=== PATIENT | male | born 1955 | race Caucasian/White ===

== ENCOUNTER 2018-11-14 12:10 | Emergency (ER) | payer OTHER, MEDICAID ==
[2018-11-14 12:21] VITALS: BP 117/65
--- NOTE | 2018-11-14 12:53 | ER Document Report ---
ED Medical Screen (RME) - General Mode of Arrival: Wheelchair Information source: Patient TRAVEL OUTSIDE OF THE U.S. IN LAST 30 DAYS: No <ZAYRA BENAVIDES - Last Filed: 11/14/18 12:52> <JESSICA LEHMAN - Last Filed: 11/14/18 14:50> - General Chief Complaint: Edema Stated Complaint: POSSIBLE PEDAL EDEMA Time Seen by Provider: 11/14/18 12:32 Notes: Patient is a 63-year-old male presents emergency department today with multiple complaints. Patient reports he is homeless and has bilateral lower extremity edema. He also reports he has an alcoholic and is hoping he can start detox. He states he tried detoxing last November unsuccessfully. He does have a friend at the bedside with him. Exam: Bilateral 2+ pitting edema to his lower extremities. I have greeted and performed a rapid initial assessment of this patient. A com prehensive ED assessment and evaluation of the patient, analysis of test results and completion of the medical decision making process will be conducted by additional ED providers. I have specifically instructed the patient or family members with the patient to immediately return to any nursing staff should anything change in the patient's condition or with their chief complaint. This medical record was dictated with voice recognizing software. There may be grammatical, syntax errors that are unintended. (ZAYRA BENAVIDES) - Related Data Allergies/Adverse Reactions: No Known Allergies Allergy (Verified 05/29/15 16:48) Past Medical History - Social History Chew tobacco use (# tins/day): No Frequency of alcohol use: Heavy Drug Abuse: Marijuana <ZAYRA BENAVIDES - Last Filed: 11/14/18 12:52> Physical Exam - Vital signs Vitals: Temp Pulse Resp BP Pulse Ox 97.8 F 81 18 117/65 94 11/14/18 12:20 11/14/18 12:20 11/14/18 12:20 11/14/18 12:20 11/14/18 12:20 Course - Laboratory Result Diagrams: 11/14/18 13:11/14/18 13:09 <JESSICA LEHMAN P - Last Filed: 11/14/18 14:50> - Vital Signs Vital signs: Temp Pulse Resp BP Pulse Ox 97.8 F 81 18 117/65 94 11/14/18 12:20 11/14/18 12:20 11/14/18 12:20 11/14/18 12:20 11/14/18 12:20 - Laboratory Laboratory results interpreted by me: 11/14/18 11/14/18 11/14/18 13:09 13:09 14:15 WBC 3.1 L RBC 3.86 L MCV 109 H MCH 36.7 H RDW 14.8 H Plt Count 62 L Seg Neuts % (Manual) 38 L Monocytes % (Manual) 14 H Basophils % (Manual) 3 H Abs Neuts (Manual) 1.2 L Sodium 136.9 L Glucose 180 H Total Bilirubin 4.7 H Direct Bilirubin 1.9 H AST 70 H Albumin 3.3 L Urine Urobilinogen 2.0 H
[2018-11-14 13:35] LABS: HEMOGLOBIN 14.2 g/dL (13.5-17.0); MEAN CORPUSCULAR HEMOGLOBIN 36.7 pg (27.0-33.4); MEAN CORPUSCULAR HGB CONC 33.8 g/dL (32.0-36.0); MEAN CORPUSCULAR VOLUME 109 fl (80-97); RED BLOOD COUNT 3.86 10^6/uL (4.35-5.55); RED CELL DISTRIBUTION WIDTH 14.8 % (11.5-14.0); WHITE BLOOD COUNT 3.1 10^3/uL (4.0-10.5)
[2018-11-14 13:44] LABS: ALBUMIN 3.3 g/dL (3.5-5.0); ALKALINE PHOSPHATASE 93 U/L (38-126); ANION GAP 10 (5-19); ASPARTATE AMINO TRANSFERASE 70 U/L (17-59); BILIRUBIN,DIRECT 1.9 mg/dL (0.0-0.4); BILIRUBIN,TOTAL 4.7 mg/dL (0.2-1.3); BLOOD UREA NITROGEN 7 mg/dL (7-20); CALCIUM 8.9 mg/dL (8.4-10.2); CARBON DIOXIDE 25 mmol/L (22-30); CHLORIDE 102 mmol/L (98-107); GLUCOSE 180 mg/dL (75-110); POTASSIUM 3.6 mmol/L (3.6-5.0); TOTAL PROTEIN 7.4 g/dL (6.3-8.2)
[2018-11-14 14:02] LABS: PLATELET COUNT 62 10^3/uL (150-450)
[2018-11-14 14:13] LABS: ABSOLUTE LYMPHOCYTES# (MANUAL) 1.3 10^3/uL (0.5-4.7); ABSOLUTE MONOCYTES # (MANUAL) 0.4 10^3/uL (0.1-1.4); BASOPHILS % (MANUAL) 3 % (0-2); EOSINOPHILS % (MANUAL) 3 % (0-6); LYMPHOCYTES % (MANUAL) 39 % (13-45); MONOCYTES % (MANUAL) 14 % (3-13); SEGMENTED NEUTROPHILS % (MAN) 38 % (42-78); TOTAL CELLS COUNTED 100
[2018-11-14 14:14] LABS: ANISOCYTOSIS 1+; PLATELET COMMENT DECREASED
[2018-11-14 14:34] LABS: APPEARANCE,URINE CLEAR; BILIRUBIN,URINE NEGATIVE (NEGATIVE); COLOR,URINE STRAW; GLUCOSE, URINE NEGATIVE (NEGATIVE); KETONES,URINE NEGATIVE (NEGATIVE); LEUKOCYTE ESTERASE,URINE NEGATIVE (NEGATIVE); NITRITE,URINE NEGATIVE (NEGATIVE); PROTEIN,URINE NEGATIVE (NEGATIVE); URINE SPECIFIC GRAVITY 1.006
--- NOTE | 2018-11-14 14:55 | ER Document Report ---
ED General <ROBI HUSSEIN - Last Filed: 11/14/18 15:05> - General Mode of Arrival: Wheelchair Information source: Patient TRAVEL OUTSIDE OF THE U.S. IN LAST 30 DAYS: No - HPI Onset: Last week Onset/Duration: Gradual Quality of pain: No pain Severity: Moderate Pain Level: Denies Associated symptoms: None Exacerbated by: Denies Relieved by: Denies Similar symptoms previously: Yes Recently seen / treated by doctor: Yes <JESSICA LEHMAN - Last Filed: 11/14/18 15:18> - General Chief Complaint: Edema Stated Complaint: POSSIBLE PEDAL EDEMA Time Seen by Provider: 11/14/18 12:32 Primary Care Provider: [facility] [Outside] - Follow up as needed - HPI Context: 63 year old [place] patient is an admitted alcoholic - drinks 12 pack of beer each evening and drank 6 last night - who presents from [place] with complaints of le swelling. He has a h/o edema and tells me he was just recently able to get his lasix and spironolactone. H/O hepatitis C and etohism. No SI or HI. (JESSICA LEHMAN) - Related Data Allergies/Adverse Reactions: No Known Allergies Allergy (Verified 05/29/15 16:48) Past Medical History - General Information source: Patient - Social History Smoking Status: Current Every Day Smoker Chew tobacco use (# tins/day): No Frequency of alcohol use: Heavy Drug Abuse: Marijuana Family History: Reviewed & Not Pertinent Patient has suicidal ideation: No Patient has homicidal ideation: No - Past Medical History Cardiac Medical History: Reports: Hx Hypertension Pulmonary Medical History: Reports: Hx COPD <JESSICA LEHMAN - Last Filed: 11/14/18 15:18> Review of Systems - Review of Systems Constitutional: No symptoms reported EENT: No symptoms reported Cardiovascular: No symptoms reported Respiratory: No symptoms reported Gastrointestinal: No symptoms reported Genitourinary: No symptoms reported Male Genitourinary: No symptoms reported Musculoskeletal: See HPI, Leg swelling Skin: No symptoms reported Hematologic/Lymphatic: No symptoms reported Neurological/Psychological: No symptoms reported <JESSICA LEHMAN - Last Filed: 11/14/18 15:18> Physical Exam - Vital signs Interpretation: Normal - General General appearance: Appears well, Alert - HEENT Head: Normocephalic, Atraumatic Eyes: Normal Pupils: PERRL - Respiratory Respiratory status: No respiratory distress Chest status: Nontender Breath sounds: Normal Chest palpation: Normal - Cardiovascular Rhythm: Regular Heart sounds: Normal auscultation Murmur: No - Abdominal Inspection: Normal Distension: No distension Bowel sounds: Normal Tenderness: Nontender Organomegaly: No organomegaly - Back Back: Nontender - Extremities General upper extremity: Normal inspection, Nontender, Normal color, Normal ROM, Normal temperature General lower extremity: Normal inspection, Edema, Normal color, Normal ROM, Normal temperature, Normal weight bearing. No: Jackie's sign - Neurological Neuro grossly intact: Yes Cognition: Normal Orientation: AAOx4 [place] Coma Scale Eye Opening: Spontaneous Lobo Coma Scale Verbal: Oriented Lobo Coma Scale Motor: Obeys Commands [place] Coma Scale Total: 15 Speech: Normal Sensory: Normal - Psychological Associated symptoms: Normal affect, Normal mood - Skin Skin Temperature: Warm Skin Moisture: Dry Skin Color: Normal <JESSICA LEHMAN P - Last Filed: 11/14/18 15:18> - Vital signs Vitals: Temp Pulse Resp BP Pulse Ox 97.8 F 81 18 117/65 94 11/14/18 12:20 11/14/18 12:20 11/14/18 12:20 11/14/18 12:20 11/14/18 12:20 Course - Laboratory Result Diagrams: 11/14/18 13:09 11/14/18 13:09 <ROBI HUSSEIN - Last Filed: 11/14/18 15:05> - Laboratory Result Diagrams: 11/14/18 13:09 11/14/18 13:09 <JESSICA LEHMAN - Last Filed: 11/14/18 15:18> - Re-evaluation Re-evalutation: 11/14/18 14:56 MDM 63 year old with lower extremity edema - not new - who presents via a friend from [facility] for evaluation. He has no SI or HI. [place] the gentleman put him out reportedly because he did not want Mr Clemons living with him any longer. No SI or HI. Tells me he has been here previously about 3 years ago. No fever. No chest pain and no sob. Takes lasix and spironolactone. He just had those filled yesterday. I have discussed with mental health and they will see him and show him the resources available locally. (JESSICA LEHMAN) - Vital Signs Vital signs: Temp Pulse Resp BP Pulse Ox 97.8 F 81 18 117/65 94 11/14/18 12:20 11/14/18 12:20 11/14/18 12:20 11/14/18 12:20 11/14/18 12:20 - Laboratory Laboratory results interpreted by me: 11/14/18 11/14/18 11/14/18 13:09 13:09 14:15 WBC 3.1 L RBC 3.86 L MCV 109 H MCH 36.7 H RDW 14.8 H Plt Count 62 L Seg Neuts % (Manual) 38 L Monocytes % (Manual) 14 H Basophils % (Manual) 3 H Abs Neuts (Manual) 1.2 L Sodium 136.9 L Glucose 180 H Total Bilirubin 4.7 H Direct Bilirubin 1.9 H AST 70 H Albumin 3.3 L Urine Urobilinogen 2.0 H Discharge <ROBI HUSSEIN - Last Filed: 11/14/18 15:05> <JESSICA LEHMAN - Last Filed: 11/14/18 15:18> - Discharge Clinical Impression: Alcoholism /alcohol abuse, Hepatitis, Desire for detoxification, Cannabis abuse Condition: Stable Disposition: HOME, SELF-CARE Instructions: Alcoholic Hepatitis ([facility]), Chronic Alcoholism ([facility]), Cirrhosis ([facility]), Edema, Peripheral ([facility]) Additional Instructions: You have been evaluated by both medical and behavioral health providers while in the emergency department. You have been cleared from both acute medical and psychiatric services. You gave verbal consent to link and make referral to the [facility] for voluntary alcohol detoxification. They are expecting you by 1530. You are to go directly to their facility upon discharge from the emergency department. CHRONIC ALCOHOLISM and ALCOHOL ABUSE: Your evaluation reveals evidence of chronic alcoholism, an addiction to alcohol. The tendency to alcoholism may be inherited. Chronic use of alcohol weakens muscles, causes fatty deposits in the liver, damages the stomach, makes you more prone to infections, and can cause defects in unborn children. In the long run, brain atrophy and cirrhosis of the liver result. You are also at greater risk for certain types of cancer, such as cancer of the mouth, throat, stomach, and liver. Counselling services are available to help you. In-hospital treatment programs often help. Support groups such as Alcoholics Anonymous can be very useful in beating this addiction. Your physician can make a referral for you. As alcoholics often are prone to other addictions, you should discuss your use of any other medications with the doctor. ALCOHOL WITHDRAWAL: (concerns for it you continue to abstain since you reported drinking a 12 pack of beer a day last 2 years) Your symptoms are caused by alcohol withdrawal. After a period of frequent drinking, the brain and body are changed by the alcohol. When you quit or reduce your drinking, the nervous system becomes unstable. Withdrawal symptoms can start a few hours after your last drink, but sometimes don't begin until a couple of days later. Symptoms can include shakiness, sweating, insomnia, na usea, vomiting, fearfulness, hallucinations, and seizures. In addition to the acute effects of alcohol withdrawal, we often have to deal with the medical effects of alcoholism. These problems often include dehydration, stomach irritation, intestinal bleeding, low blood sugar, liver disease, and pancreas inflammation. Treatment for alcohol withdrawal includes mild sedatives, vitamins, and fluids. You need to be with someone who can help if symptoms become severe. Many patients can withdraw at home. Admission to the hospital or a detox facility may be necessary if withdrawal symptoms are severe and uncontrollable. Abstaining from alcohol is the only effective long-term treatment. If you start drinking again, you will not be able to control yourself after the first drink. Treatment programs are available. In addition, many alcoholics benefit from Alcoholics Anonymous or other support groups available through your counselor or [employer] nurse. AL-ANON and ALA-TEEN are support groups for friends and family members of an alcoholic. Go to the emergency room if you develop persistent vomiting, severe abdominal pain, fever, shortness of breath, hallucinations, uncontrollable tremors, or seizures. FOLLOW-UP CARE: The [facility] is expecting you by 1530 for voluntary alcohol detoxification. You are to go directly to their facility upon discharge from emergency department as you should be medically monitored during alcohol cessation. If you experience worsening or a significant change in your symptoms, notify the physician immediately, utilize mobile crisis or return to the Emergency Department at any time for re-evaluation. Referrals: [facility] [Outside] - Follow up as needed
--- NOTE | 2018-11-14 17:48 | PSYCHOLOGICAL NOTE ---
Psych Note - Psych Note Date seen by psych provider: 11/14/18 Time seen by psych provider: 15:00 - Evaluation at 1500. Spoke to friend as collateral and for plan of care at 1516.. Psych Note: Presenting Problem: Alcohol use and desire for detox. He is a . Initially consulted to only provide SA resources. Patient identified he was sleeping on a bench when Juan Miller came to him asking if her remembered her which he did not. He stated he is homeless and she allowed him to stay at her home last night, where he got clean clothes/food/bed to sleep in and the condition was he'd come to the ED today for help. He admitted he drinks a 12 pack a day and smokes pot. He reported last drink was last night. He acknowledged he went to detox at a place next to [facility] (likely the [place]) 2 years ago this November but was discharged and began drinking right away. He denied Hx of DTs or seizures and noted only withdrawal symptom of shakes. Patient presented with glossy blood shot eyes. Patient was alert and oriented x5 with linear thinking, he denied SI/HI, mood was euthymic with congruent affect, he made fair eye contact, he was able to engage and carry on dialogue conversation which was within normal limits for rate/tone/prosody. Juan Miller ([phone]) was where patient stayed last night. She stated she had been called by patient's friend to help him. She noted [facility] in [place] ([place] [facility]) has bed availability but he has to complete applic ation process (called vetting) before accepted. She noted medical concerns of edema in feet, chronic cirrhosis and hip issue/needs replacement for past 3 years. Diagnosis: Alcohol Use Disorder, Severe Homelessness Chronic Medical issues Impression/Plan: Patient is cleared from acute psychiatric services. Patient was alert and oriented x5 with linear thinking, he denied SI/HI, mood was euthymic with congruent affect, he made fair eye contact, he was able to engage and carry on dialogue conversation which was within normal limits for rate/tone/prosody. Patient gave verbal consent to make linkage and send referral to [facility] for voluntary detox. They said he could come over by 1530. His ride and friend of friend Juan was not available right away but did come for transportation. Provided patient with the outpatient SA resource sheet which highlighted [facility]FS MCM, documented IFS MCM can assist with voluntary detox and listed the detox facilities. Consulted with Dr. Arnold regarding the management and care of patient. ED physician in agreement with recommendations.
--- NOTE | 2018-11-14 18:10 | EKG REPORT ---
SEVERITY:- ABNORMAL ECG - SINUS RHYTHM ANTERIOR INFARCT, AGE INDETERMINATE : Confirmed by: Mansoor Farmer MD 14-Nov-2018 18:09:40
== END 2018-11-14 15:41 | disposition home or self-care (01) ==
LOC: ER 12:10
DX: F12.10 Cannabis abuse, uncomplicated (principal); F10.10 Alcohol abuse, uncomplicated; K75.9 Inflammatory liver disease, unspecified; R60.9 Edema, unspecified; J44.9 Chronic obstructive pulmonary disease, unspecified; Z59.0 Homelessness
CPT/HCPCS: 36415; 80053; 81001; 83880; 85025; 93005; 93010; 99285

== ENCOUNTER 2018-11-14 17:46 | Emergency (ER) | payer OTHER, MEDICAID ==
--- NOTE | 2018-11-14 18:18 | ER Document Report ---
ED Medical Screen (RME) - General Chief Complaint: Feet Swelling Stated Complaint: FEET SWELLING Time Seen by Provider: 11/14/18 18:17 Mode of Arrival: Wheelchair Information source: Patient Notes: Patient was seen and discharged from here just a few hours ago, he apparently went to the [facility] where they state that he is not appropriate for treatment there as they feel that he may be going into acute alcohol withdrawal. Patient has no new complaints. I have greeted and performed a rapid initial assessment of this patient. A comprehensive ED assessment and evaluation of the patient, analysis of test results and completion of the medical decision making process will be conducted by additional ED providers. I have specifically instructed the patient or family members with the patient to immediately return to any nursing staff should anything change in the patient's condition or with their chief complaint. This medical record was dictated with voice recognizing software. There may be grammatical, syntax errors that are unintended. TRAVEL OUTSIDE OF THE U.S. IN LAST 30 DAYS: No - Related Data Allergies/Adverse Reactions: No Known Allergies Allergy (Verified 11/14/18 17:58) Past Medical History - Past Medical History Cardiac Medical History: Reports: Hx Hypertension Pulmonary Medical History: Reports: Hx COPD Physical Exam - Vital signs Vitals: Temp Pulse Resp BP Pulse Ox 98.0 F 70 18 114/82 96 11/14/18 18:12 11/14/18 18:12 11/14/18 18:12 11/14/18 18:12 11/14/18 18:12 Course - Vital Signs Vital signs: Temp Pulse Resp BP Pulse Ox 98.0 F 70 18 114/82 96 11/14/18 18:12 11/14/18 18:12 11/14/18 18:12 11/14/18 18:12 11/14/18 18:12
--- NOTE | 2018-11-14 19:48 | ER Document Report ---
ED General - General Mode of Arrival: Wheelchair TRAVEL OUTSIDE OF THE U.S. IN LAST 30 DAYS: No - General Chief Complaint: Feet Swelling Stated Complaint: FEET SWELLING Time Seen by Provider: 11/14/18 18:17 Primary Care Provider: [facility] [Outside] - Follow up as needed [facility] [Outside] - Follow up as needed [facility] - Follow up as needed - [facility] Notes: She was seen here earlier today by another emergency medicine physician was medically clear and sent to [facility] for voluntary alcohol rehabilitation. He was sent back to to not meeting criteria for including incontinence as well as inability to walk by himself he has to use a cane. I discussed this with the nursing staff at the rehabilitation center. Patient is currently not tachycardic or hypertensive and is well-appearing with no tremulous. He does have minor bilateral pitting edema which is normal for him he does have hepatitis C. He just had his Lasix and spironolactone filled earlier this week. (CALVIN GUTHRIE) - Related Data Allergies/Adverse Reactions: No Known Allergies Allergy (Verified 11/14/18 17:58) Past Medical History - General Information source: Patient - Social History Smoking Status: Current Every Day Smoker Chew tobacco use (# tins/day): No Frequency of alcohol use: Heavy Drug Abuse: Marijuana Family History: Reviewed & Not Pertinent Patient has suicidal ideation: No Patient has homicidal ideation: No - Past Medical History Cardiac Medical History: Reports: Hx Hypertension Pulmonary Medical History: Reports: Hx COPD Review of Systems - Review of Systems Constitutional: No symptoms reported EENT: No symptoms reported Cardiovascular: No symptoms reported Respiratory: No symptoms reported Gastrointestinal: No symptoms reported Genitourinary: No symptoms reported Male Genitourinary: No symptoms reported Musculoskeletal: No symptoms reported Skin: No symptoms reported Hematologic/Lymphatic: No symptoms reported Neurological/Psychological: No symptoms reported Physical Exam - Vital signs Vitals: Temp Pulse Resp BP Pulse Ox 98.0 F 70 18 114/82 96 11/14/18 18:12 11/14/18 18:12 11/14/18 18:12 11/14/18 18:12 11/14/18 18:12 Course - Re-evaluation Re-evalutation: 11/14/18 20:01 She is well-appearing with normal vitals. He is homeless. He normally drinks approximately 12 pack a day. He is requesting inpatient rehabilitation intake center will not approve him to his known urinary incontinence and having to use a cane to ambulate. Psych service is consulted for in the a.m. for placement other rehabilitation facilities. Will write for standing order for as needed Ativan as needed. 11/15/18 17:16 Patient was awaiting psych consult my end of shift (CALVIN GUTHRIE H) - Vital Signs Vital signs: Temp Pulse Resp BP Pulse Ox 98.2 F 74 16 102/58 L 97 11/15/18 12:30 11/15/18 12:30 11/15/18 12:30 11/15/18 12:30 11/15/18 12:30 Discharge - Discharge Clinical Impression: Alcohol abuse, Desire for detoxification, Alcoholism /alcohol abuse, Hepatitis, Homelessness Condition: Stable Disposition: HOME, SELF-CARE Additional Instructions: You have been evaluated by both medical and behavioral health providers while in the emergency department. You have been cleared from both acute medical and psychiatric services. Many of your needs are social (housing, transportation). You have requested (and it is felt to be appropriate) voluntary detoxification for alcohol (sent to [facility] yesterday: denied due to their facility doctor saying too medically acute, denied again today 11/15/18 for your medical acuity, [facility] does not accept Veterans Affairs Benefits or Medicaid, [facility] stated you have to get a consult from the Veterans Affairs where you are registered at under your Primary Care or Psychiatric provider). Hospital Emergency Department Social Work/Discharge Planning (SW/DC) team called and made voluntary referral to [facility] who were provided both yours and friend's number who brought you in for contact when a bed is available. You have been provided the [facility] Sheet which lists [facility] Mobile [facility], [facility], and the local homeless care home information. Hospital Emergency Department Social Work/Discharge Planning (SW/DC) team also reached out to [facility] for resources. CHRONIC ALCOHOLISM and ALCOHOL ABUSE: Your evaluation reveals evidence of chronic alcoholism, an addiction to alcohol. The tendency to alcoholism may be inherited. Chronic use of alcohol weakens muscles, causes fatty deposits in the liver, damages the stomach, makes you more prone to infections, and can cause defects in unborn children. In the long run, brain atrophy and cirrhosis of the liver result. You are also at greater risk for certain types of cancer, such as cancer of the mouth, throat, stomach, and liver. Counselling services are available to help you. In-hospital treatment programs often help. Support groups such as Alcoholics Anonymous can be very useful in beating this addiction. Your physician can make a referral for you. As alcoholics often are prone to other addictions, you should discuss your use of any other medications with the doctor. Follow-Up Care: You have been provided the [facility] Sheet for local resource information to include: [facility], [facility], local homeless care home/other housing/food pantries/[employer] information. [facility] team and Emergency Department Social Work/Discharge Planning (SW/DC) team both involved and coordinated care. Made numerous referrals and reached out to other community professionals for additional resources and supports. If your symptoms persist or worsen please contact your physician immediately, utilize mobile crisis or return to the emergency department. Referrals: [facility] [Primary Care Provider] - Follow up as needed [facility] [Outside] - Follow up as needed [facility] [Outside] - Follow up as needed
[2018-11-14] MEDS ORDERED: LORAZEPAM 1 MG TABLET PO PRN (20:19)
--- NOTE | 2018-11-15 10:22 | ER Document Report ---
Doctor's Note Notes: 11/15/18 10:20 Rounds: Chart reviewed and patient interviewed. Patient is homeless. He came in yesterday and was referred to the detox facility, but they sent him here because he has a limp and has to use a cane to walk and because of swelling of his legs. Patient's labs show a white count 3100 with 39% lymphs. Platelet count 62,000. Bilirubin 4.7. Diagnosis of hepatitis C. Vital signs are all normal. Waleska Hsu MD
--- NOTE | 2018-11-15 12:18 | PSYCHOLOGICAL NOTE ---
Psych Note - Psych Note Date seen by psych provider: 11/15/18 Time seen by psych provider: 09:34 - Cooridination with [facility] PH[facility] at 0934 and 1036. Ongoing coordination with ED KISHORE. Made other contacts for detox. Psych Note: Presenting Problem: Mandy PHAN sent patient back to the ED and said he was declined from their facility due to his medically acuity. Patient is a homeless [place] still wanting alcohol detox with chronic medical issues. Patient slept most of the day. Patient was alert and oriented x5 with linear thinking, he denied SI/HI, mood was euthymic with congruent affect, he made fair eye contact, he was able to engage and carry on dialogue conversation which was within normal limits for rate/tone/prosody. Patient's medical issues are chronic. Dr. Arnold requested contacting [facility] regarding such. Faxed new referral. They denied due to cane (unable to have cane on the floor at their facility) and incontinence. [facility] does not accept VA or Medicaid. [facility] said [facility] would [facility] and they could provide services to patient. Coordinated with ED KISHORE Denny who was informed of patient from his first ED visit yesterday. She made a [facility] referral, reached out to [facility] and contacted individuals from detox/rehab centers in [place]. She also coordinated with patient's friend of a friend Juan. Diagnosis: Alcohol Use Disorder, Severe Homelessness Chronic Medical issues Impression/Plan: Patient is cleared from acute psychiatric services. Patient was alert and oriented x5 with linear thinking, he denied SI/HI, mood was euthymic with congruent affect, he made fair eye contact, he was able to engage and carry on dialogue conversation which was within normal limits for rate/tone/prosody. Patient gave verbal consent to make linkage and send referral to [facility] for voluntary detox. They said he could come over by 1530. His ride and friend of friend Juan was not available right away but did come for transportation. Provided patient with the outpatient [facility] resource sheet which highlighted IFS MCM, documented IFS MCM can assist with voluntary detox and listed the detox facilities. Consulted with Dr. Arnold regarding the management and care of patient. ED physician in agreement with recommendations. Patient being held overnight since no safe discharge plan given his chronic medical issues and concern for alcohol withdrawal. ED SW to find out from [facility] about bed availability tomorrow morning. Patient is cleared from acute psychiatric services.
--- NOTE | 2018-11-17 10:49 | ER Document Report ---
Doctor's Note Notes: 11/17/18 10:47 I have evaluated this pt. this am and he has no c/o at this time. He feels all of his needs are being met and his physical exam is normal. He is awaiting disposition per mental health.
[2018-11-17 23:40] VITALS: BP 110/60
--- NOTE | 2018-11-18 11:00 | ER Document Report ---
Doctor's Note Notes: 11/18/18 10:59 I have evaluated this pt. this am and he has no c/o at this time. He feels all of his needs are being met and his physical exam is normal. He is awaiting disposition per mental health.
== END 2018-11-18 18:04 | disposition home or self-care (01) ==
LOC: ER 17:46
DX: F10.20 Alcohol dependence, uncomplicated (principal); M79.89 Other specified soft tissue disorders; B19.20 Unspecified viral hepatitis C without hepatic coma; Z59.0 Homelessness; F17.200 Nicotine dependence, unspecified, uncomplicated; J44.9 Chronic obstructive pulmonary disease, unspecified; I10 Essential (primary) hypertension
CPT/HCPCS: 99285

== ENCOUNTER 2018-12-12 14:17 | Emergency (ER) | payer OTHER, MEDICAID ==
--- NOTE | 2018-12-12 14:48 | RADIOLOGY REPORT (SQ) ---
EXAM DESCRIPTION: HIP LEFT AP/LATERAL COMPLETED DATE/TIME: 12/12/2018 2:39 pm REASON FOR STUDY: bed 7 fall injury +deformity short l leg dr alvarez COMPARISON: None. NUMBER OF VIEWS: Two views. TECHNIQUE: AP pelvis and additional frog-leg view of the left hip. LIMITATIONS: None. FINDINGS: MINERALIZATION: Normal. LEFT HIP: No fracture or dislocation. Marked degenerative changes with joint space loss, sclerosis, subchondral cysts, and osteophytes. Irregular contour of the femoral head. RIGHT HIP: No fracture or dislocation. No worrisome bone lesions. PUBIS AND ISCHIUM: No fracture. PELVIS: No fracture. SACRUM: No fracture or dislocation. No worrisome bone lesions. LOWER LUMBAR SPINE: No fracture or dislocation. No worrisome bone lesions. No significant disc disea se. SOFT TISSUES: No findings. OTHER: No other significant finding. IMPRESSION: MARKED DEGENERATIVE CHANGES IN THE LEFT HIP. NO RADIOGRAPHIC EVIDENCE OF ACUTE INJURY. TECHNICAL DOCUMENTATION: JOB ID: [id number] [employer]- All Rights Reserved Reading location - IP/workstation name: [email or web address]
[2018-12-12 15:14] VITALS: BP 125/65
[2018-12-12] MEDS ORDERED: KETOROLAC TROMETHAMINE INJ/PF 30 MG/1 ML SDV IV ONE (15:19)
[2018-12-12] MEDS ORDERED: OXYCODONE HCL IR 5 MG TABLET PO ONE (15:19)
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
== END 2018-12-12 15:34 | disposition home or self-care (01) ==
LOC: ER 14:17
DX: M16.12 Unilateral primary osteoarthritis, left hip (principal); G89.29 Other chronic pain; M25.552 Pain in left hip; F17.200 Nicotine dependence, unspecified, uncomplicated; I10 Essential (primary) hypertension; J44.9 Chronic obstructive pulmonary disease, unspecified
CPT/HCPCS: 99283; 96374; 73502; J1885

== ENCOUNTER 2019-02-13 18:27 | Emergency (ER) | payer OTHER, MEDICAID ==
[2019-02-13] MEDS ORDERED: TRAMADOL HCL 50 MG TABLET PO ONE (21:15)
--- NOTE | 2019-02-13 21:15 | ER Document Report ---
ED Medical Screen (RME) - General Chief Complaint: Hip Pain Stated Complaint: HIP PAIN Time Seen by Provider: 02/13/19 21:02 Primary Care Provider: KAI FLORES [Primary Care Provider] - Follow up as needed Notes: Patient is a 63-year-old male who presents to the emergency department with a chief complaint of left hip pain. Patient reports he has had chronic left hip pain for years. He states he was seen by multiple orthopedics and was told that he needs a hip replacement but that they would not do this because of his low platelets. Patient reports that he does have liver cirrhosis with a low platelet count. Patient reports they do not even do steroid injections as there is a high risk. Patient reports today he was getting off the bus and started to have an increase in his left hip pain. Patient reports he is unable to bear full weight on his left hip as it causes significant pain. Patient reports he has not taken anything for her discomfort. TRAVEL OUTSIDE OF THE U.S. IN LAST 30 DAYS: No - Related Data Allergies/Adverse Reactions: No Known Allergies Allergy (Verified 11/14/18 17:58) Home Medications: folic acid, vitamin b12 Past Medical History - Past Medical History Cardiac Medical History: Reports: Hx Hypertension Pulmonary Medical History: Reports: Hx COPD GI Medical History: Reports: Hx Cirrhosis, Hx Hepatitis - Otitis he Infectious Medical History: Reports: Hx Hepatitis - Otitis he Physical Exam - Vital signs Vitals: Temp Pulse Resp BP Pulse Ox 97.0 F 64 18 125/67 97 02/13/19 19:03 02/13/19 19:03 02/13/19 19:03 02/13/19 19:03 02/13/19 19:03 Course - Re-evaluation Re-evalutation: 02/13/19 21:15 I have greeted and performed a rapid initial assessment of this patient. A comprehensive ED assessment and evaluation of the patient, analysis of test results and completion of the medical decision making process will be conducted by additional ED providers. - Vital Signs Vital signs: Temp Pulse Resp BP Pulse Ox 97.0 F 64 18 125/67 97 02/13/19 20:59 02/13/19 20:59 02/13/19 20:59 02/13/19 20:59 02/13/19 20:59 Doctor's Discharge - Discharge Referrals: [facility] [Primary Care Provider] - Follow up as needed
--- NOTE | 2019-02-13 22:04 | RADIOLOGY REPORT (SQ) ---
EXAM DESCRIPTION: XR HIP 2 OR MORE VIEWS COMPLETED DATE/TME: 02/13/2019 21:15 CLINICAL HISTORY: 63 years, Male, left hip pain COMPARISON: Prior study from 12/11/2018 NUMBER OF VIEWS: Two TECHNIQUE: Frontal and lateral radiographs were obtained LIMITATIONS: None. FINDINGS: Severe left hip joint osteoarthrosis is evident, designated by joint space narrowing, subchondral sclerosis, and subchondral cyst formation. There is associated bony remodeling about the left femoral head, similar to the prior. In addition, the left femoral head demonstrates axial migration. No additional osseous anomalies are appreciated. IMPRESSION: Unchanged appearance of severe left hip joint osteoarthrosis. No underlying acute osseous anomaly. copyright 2010 [employer]- All Rights Reserved
[2019-02-13] MEDS ORDERED: HYDROCODONE/ACETAMINOPHEN 5-325 MG (6 TAB/ER DISP) PO PRN (22:51)
--- NOTE | 2019-02-13 22:57 | ER Document Report ---
ED General - General Chief Complaint: Hip Pain Stated Complaint: HIP PAIN Time Seen by Provider: 02/13/19 21:02 Primary Care Provider: SANDR[facility]AI [Primary Care Provider] - Follow up as needed TRAVEL OUTSIDE OF THE U.[place]. IN LAST 30 DAYS: No - HPI Notes: Patient is a 63-year-old male with a known history of advanced cirrhosis as well as chronic left degenerative hip changes who presents emergency department for evaluation. He states that his hip "gave out" earlier today causing him significant pain. He states that now bearing weight causes him pain that is too great to bear. He has not tried any medications at home. He states he has had symptoms like this in the past, and medication was helpful. He denies falling all the way to the ground, denies hitting his head or losing consciousness. No neck or back pain. He has been seen multiple times to be evaluated for possible hip replacement, but states that because of his thrombocytopenia "no one will touch him." - Related Data Allergies/Adverse Reactions: No Known Allergies Allergy (Verified 11/14/18 17:58) Home Medications: folic acid, vitamin b12, 3 other medications, of which patient is unsure Past Medical History - General Information source: Patient - Social History Smoking Status: Current Every Day Smoker Frequency of alcohol use: Former heavy drinking Family History: Reviewed & Not Pertinent Patient has suicidal ideation: No Patient has homicidal ideation: No - Past Medical History Cardiac Medical History: Reports: Hx Hypertension Pulmonary Medical History: Reports: Hx COPD GI Medical History: Reports: Hx Cirrhosis, Hx Hepatitis - Otitis he Infectious Medical History: Reports: Hx Hepatitis - Otitis he Review of Systems - Review of Systems Constitutional: No symptoms reported EENT: No symptoms reported Cardiovascular: No symptoms reported Respiratory: No symptoms reported Gastrointestinal: No symptoms reported Genitourinary: No symptoms reported Musculoskeletal: No symptoms reported Skin: No symptoms reported Neurological/Psychological: No symptoms reported Physical Exam - Vital signs Vitals: Temp Pulse Resp BP Pulse Ox 97.0 F 64 18 125/67 97 02/13/19 19:03 02/13/19 19:03 02/13/19 19:03 02/13/19 19:03 02/13/19 19:03 - Notes Notes: Vital signs reviewed, please refer to chart. Head is normocephalic, atraumatic. Pupils equal round, reactive to light. Neck is supple without meningismus. Heart is regular rate and rhythm. Lungs are clear to auscultation bilaterally. Abdomen is soft, nontender, normoactive bowel sounds throughout. Extremities without cyanosis, clubbing. No obvious deformity of the left lower extremity. Patient is tender over the left greater trochanter. He has pain with passive and active range of motion at the hip, including internal and external rotation, but is able to do so. Neurovascularly intact distally. No posterior calf tenderness. No bony tenderness to the remainder of the femur, tibia, fibula. Course - Re-evaluation Re-evalutation: 02/13/19 22:54 Patient presents to the emergency department for evaluation. He is a former alcoholic with known cirrhosis and marked thrombocytopenia. He is therefore not a candidate for joint replacement according to multiple orthopedists. He had x- ray and Ultram was ordered through triage. X-ray shows severe degenerative changes but no clear fracture. Patient states again that this feels similar to how he is felt in the past. He is given crutches. I will send him home with a small amount of Vicodin and close follow-up. He is to return to the emergency department worsening or new concerning symptoms of any sort. - Vital Signs Vital signs: Temp Pulse Resp BP Pulse Ox 97.0 F 64 18 125/67 97 02/13/19 20:59 02/13/19 20:59 02/13/19 20:59 02/13/19 20:59 02/13/19 20:59 Discharge - Discharge Clinical Impression: Chronic left hip pain Condition: Stable Disposition: HOME, SELF-CARE Instructions: Arthritis ([facility]), Use of Crutches ([facility]) Additional Instructions: Take [place] as needed for severe pain. Please watch for dizziness, drowsiness, constipation with this medication. Follow-up with our on-call orthopedist, listed below. Return to the ED with worsening or new concerning symptoms of any sort. [facility]errals: [facility] [Primary Care [facility]] - Follow up as needed
[2019-02-13 22:58] VITALS: BP 122/64
== END 2019-02-13 23:11 | disposition home or self-care (01) ==
LOC: ER 18:27
DX: M16.12 Unilateral primary osteoarthritis, left hip (principal); M25.552 Pain in left hip; G89.29 Other chronic pain; K74.60 Unspecified cirrhosis of liver; D69.6 Thrombocytopenia, unspecified; F17.200 Nicotine dependence, unspecified, uncomplicated; I10 Essential (primary) hypertension; J44.9 Chronic obstructive pulmonary disease, unspecified; Z79.899 Other long term (current) drug therapy
CPT/HCPCS: 99283

== ENCOUNTER 2019-06-28 06:05 | Inpatient (IN) | payer OTHER, MEDICAID ==
[2019-06-28] MEDS ORDERED: MORPHINE SULFATE 10 MG/ML INJ IV ONE (06:28)
--- NOTE | 2019-06-28 06:29 | ER Document Report ---
ED Extremity Problem, Lower - General Mode of Arrival: Medic Information source: Patient TRAVEL OUTSIDE OF THE U.S. IN LAST 30 DAYS: No <PAM MADSEN - Last Filed: 06/28/19 07:56> <DILLON VANG - Last Filed: 06/28/19 14:33> - General Chief Complaint: Hip Pain Stated Complaint: FALL/HIP PAIN Time Seen by Provider: 06/28/19 06:15 Notes: 63-year-old male past medical history significant for cirrhosis of the liver, HTN, COPD presents to the emergency room with left hip pain via EMS. Patient states he was trying to find a remote when he lost his balance fell and landed on his left hip and injuring his left wrist. Denies any head injury or head trauma. Denies any loss of consciousness. Denies dizziness, shortness of breath, no difficulty breathing. Patient states he was unable to ambulate secondary to the pain called 911 for assistance. Patient has had previous injuries to his hip but states he is never fractured it or had to have surgery. States he did not take anything for pain. No meds were given by EMS (PAM MADSEN) - Related Data Allergies/Adverse Reactions: No Known Allergies Allergy (Verified 06/28/19 06:41) Past Medical History - General Information source: Patient - Social History Smoking Status: Current Every Day Smoker Frequency of alcohol use: Heavy Drug Abuse: Marijuana Lives with: Alone Family History: Reviewed & Not Pertinent - Past Medical History Cardiac Medical History: Reports: Hx Hypertension Pulmonary Medical History: Reports: Hx COPD GI Medical History: Reports: Hx Cirrhosis, Hx Hepatitis - Otitis he Infectious Medical History: Reports: Hx Hepatitis - Otitis he <PAM MADSEN - Last Filed: 06/28/19 07:56> Review of Systems - Review of Systems Constitutional: No symptoms reported EENT: No symptoms reported Cardiovascular: No symptoms reported Respiratory: No symptoms reported Musculoskeletal: Joint pain Skin: No symptoms reported Neurological/Psychological: No symptoms reported -: Yes All other systems reviewed and negative <PAM MADSEN - Last Filed: 06/28/19 07:56> Physical Exam - General General appearance: Appears well, Alert In distress: Moderate - HEENT Head: Normocephalic - Respiratory Respiratory status: No respiratory distress Chest status: Nontender Breath sounds: Normal Chest palpation: Normal - Cardiovascular Rhythm: Regular Heart sounds: Normal auscultation Murmur: No - Back Back: Normal, Nontender. No: Vertebra tenderness - Extremities Wrist: Tender - Painful range of motion with flexion extension to the left wrist. Tenderness over the distal left radius. Mild swelling noted. [employer] strength equal and adequate bilaterally. Hip: Tender - Left leg is shortened and rotated externally. There is tenderness over the left lateral aspect of the knee. Unable to flex or extend leg secondary to pain., Pain with ROM, Unable to bear weight - Neurological Neuro grossly intact: Yes Cognition: Normal Orientation: AAOx4 Additional motor exam normals: Equal fisher quahog <PAM MADSEN - Last Filed: 06/28/19 07:56> - Vital signs Vitals: Temp 97.9 F 06/28/19 06:06 - Neurological Notes: Positive left pedal pulse. (PAM MADSEN) Course - Laboratory Result Diagrams: 06/28/19 07:30 06/28/19 07:30 <PAM MADSEN - Last Filed: 06/28/19 07:56> - Laboratory Result Diagrams: 06/28/19 07:30 06/28/19 07:30 - Diagnostic Test Radiology reviewed: Reports reviewed <DILLON VANG - Last Filed: 06/28/19 14:33> - Re-evaluation Re-evalutation: 06/28/19 07:31 Reviewed hip results with patient. Aware of need for admission. Labs and chest x-ray pending. 06/28/19 07:54 Reviewed x-ray results with patient. Report noted a questionable foreign body to the distal radius metaphysis. Area was palpated there is no entry wound. No palpable foreign body noted. Patient denies any previous injury or foreign body. 06/28/19 07:56 (PAM MADSEN) 06/28/19 09:48 Called and spoke with Dr. Alonzo who recommends keeping patient n.p.o. stating that he would likely take patient to the OR later this afternoon. 06/28/19 09:55 Consulted with ZACH warren who agrees to accept patient to surgical floor as an admission under Dr. Arthur services. 06/28/19 09:56 Patient is agreeable with this plan of care. Patient encouraged to remain NPO. (DILLON VANG) - Vital Signs Vital signs: Temp Pulse Resp BP Pulse Ox 97.9 F 76 18 110/77 97 06/28/19 13:26 06/28/19 13:26 06/28/19 13:26 06/28/19 13:26 06/28/19 13:26 - Laboratory Laboratory results interpreted by me: 06/28/19 06/28/19 06/28/19 07:30 07:30 07:30 RBC 3.82 L MCV 106 H MCH 36.9 H RDW 14.7 H Plt Count 95 L Lymph % (Auto) 8.3 L Seg Neutrophils % 79.8 H PT 16.6 H Sodium 136.7 L Carbon Dioxide 19 L Glucose 127 H Total Bilirubin 2.3 H Direct Bilirubin 0.9 H AST 100 H ALT 60 H Albumin 3.1 L Amylase 06/28/19 07:30 RBC MCV MCH RDW Plt Count Lymph % (Auto) Seg Neutrophils % PT Sodium Carbon Dioxide Glucose Total Bilirubin Direct Bilirubin AST ALT Albumin Amylase 116 H - EKG Interpretation by Me Additional EKG results interpreted by me: 06/28/19 07:56 EKG reviewed and interpreted by ED MD Dr. Read. 06/28/19 07:58 NO ACUTE Stemi (PAM MADSEN) Discharge <PAM MADSEN - Last Filed: 06/28/19 07:56> - Discharge Admitting Provider: Jerson (Hospitalist) Unit Admitted: Surgical Floor <DILLON VANG - Last Filed: 06/28/19 14:33> - Discharge Clinical Impression: Displaced intertrochanteric fracture of left femur, initial encounter for closed fracture Condition: Stable Disposition: ADMITTED INPATIENT
--- NOTE | 2019-06-28 07:36 | RADIOLOGY REPORT (SQ) ---
EXAM: X-ray hip two or more views CLINICAL DATA: 63-year-old male with left hip pain TECHNICAL DATA: Two x-ray views of the left hip were performed on 06/28/2019 at 7:21 AM. COMPARISONS: 02/13/2019 FINDINGS: There is a minimally displaced intertrochanteric fracture of the proximal left femur. There is marked osteoarthritis of the left hip joint with marked narrowing along the superolateral aspect of the left hip joint and flattening of the left femoral head suggesting avascular necrosis. Findings are similar when compared to the prior study. The right hip joint is intact. There is minimal narrowing of the right hip joint. No additional acute fractures are identified. Bone mineralization is within normal limits. No focal soft tissue abnormalities are identified. IMPRESSION: 1. Minimally displaced intertrochanteric fracture of the proximal left femur. 2. 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 Findings are similar when compared to the prior study.
--- NOTE | 2019-06-28 07:44 | RADIOLOGY REPORT (SQ) ---
EXAM: X-ray wrist three or more views CLINICAL DATA: 63-year-old male with injury to left wrist TECHNICAL DATA: Three x-ray views of the left wrist were performed on 06/28/2019 at 7:01 AM. COMPARISONS: None FINDINGS: There is a minimally displaced fracture of the ulnar styloid process. No definite additional acute fracture is appreciated. There is widening of the scapholunate joint space which may represent age indeterminant ligamentous injury. There is narrowing of the 1st carpal metacarpal joint space with associated subchondral sclerosis and minimal hypertrophic spurring consistent with osteoarthritis. No pathologic lytic or sclerotic bone lesions are identified. Bone mineralization is normal. There is a punctate radiopaque foreign body projecting along the dorsal aspect of the distal radial metaphysis. IMPRESSION: 1. Minimally displaced fracture of the ulnar styloid process. 2. Widening of the scapholunate joint space which may represent age indeterminate ligamentous injury. 3. Osteoarthritis particularly involving the 1st carpal metacarpal joint. 4. Punctate radiopaque foreign body projecting along the dorsal aspect of the distal radial metaphysis.
[2019-06-28 07:53] LABS: INTERNATIONAL RATION (INR) 1.33; PROTHROMBIN TIME 16.6 SEC (11.4-15.4)
[2019-06-28 08:00] LABS: ABSOLUTE LYMPHOCYTES (AUTO) 0.5 10^3/uL (0.5-4.7); ABSOLUTE MONOCYTES (AUTO) 0.7 10^3/uL (0.1-1.4); ABSOLUTE NEUT (AUTO) 4.8 10^3/uL (1.7-8.2); BASOPHILS % (AUTO) 0.3 % (0-2); EOSINOPHILS % (AUTO) 0.1 % (0-6); HEMATOCRIT 40.3 % (37.9-51.0); HEMOGLOBIN 14.1 g/dL (13.5-17.0); LYMPHOCYTES % (AUTO) 8.3 % (13-45); MEAN CORPUSCULAR HEMOGLOBIN 36.9 pg (27.0-33.4); MEAN CORPUSCULAR HGB CONC 34.9 g/dL (32.0-36.0); MEAN CORPUSCULAR VOLUME 106 fl (80-97); MONOCYTES % (AUTO) 11.5 % (3-13); RED BLOOD COUNT 3.82 10^6/uL (4.35-5.55); RED CELL DISTRIBUTION WIDTH 14.7 % (11.5-14.0); SEGMENTED NEUTROPHILS % (AUTO) 79.8 % (42-78); TOTAL CELLS COUNTED % (AUTO) 100 %
[2019-06-28 08:11] LABS: ALBUMIN 3.1 g/dL (3.5-5.0); ALKALINE PHOSPHATASE 96 U/L (38-126); ANION GAP 14 (5-19); ASPARTATE AMINO TRANSFERASE 100 U/L (17-59); BILIRUBIN,DIRECT 0.9 mg/dL (0.0-0.4); BILIRUBIN,TOTAL 2.3 mg/dL (0.2-1.3); BLOOD UREA NITROGEN 10 mg/dL (7-20); CALCIUM 8.7 mg/dL (8.4-10.2); CARBON DIOXIDE 19 mmol/L (22-30); CHLORIDE 104 mmol/L (98-107); GLUCOSE 127 mg/dL (75-110); POTASSIUM 4.4 mmol/L (3.6-5.0); TOTAL PROTEIN 7.1 g/dL (6.3-8.2)
--- NOTE | 2019-06-28 08:16 | EKG REPORT ---
SEVERITY:- ABNORMAL ECG - SINUS RHYTHM PROBABLE ANTEROSEPTAL INFARCT, AGE INDETERM BORDERLINE PROLONGED QT INTERVAL : Confirmed by: Genevieve Gould MD 28-Jun-2019 08:15:51
--- NOTE | 2019-06-28 08:28 | RADIOLOGY REPORT (SQ) ---
EXAM DESCRIPTION: CHEST SINGLE VIEW IMAGES COMPLETED DATE/TIME: 06/28/2019 7:48 am REASON FOR STUDY: pre op COMPARISON: 05/29/2015 EXAM PARAMETERS: NUMBER OF VIEWS: One view. TECHNIQUE: Single frontal radiographic view of the chest acquired. RADIATION DOSE: NA LIMITATIONS: None. FINDINGS: LUNGS AND PLEURA: No opacities, masses or pneumothorax. No pleural effusion. MEDIASTINUM AND HILAR STRUCTURES: No masses. Contour normal. HEART AND VASCULAR STRUCTURES: Heart normal in size. Normal vasculature. BONES: No acute findings. HARDWARE: None in the chest. OTHER: No other significant finding. IMPRESSION: NO ACUTE RADIOGRAPHIC FINDING IN THE CHEST. TECHNICAL DOCUMENTATION: JOB ID: [id number] 2010 [employer]- All Rights Reserved Reading location - IP/workstation name: [email or web address]
[2019-06-28 08:33] LABS: PLATELET COUNT 95 10^3/uL (150-450)
[2019-06-28] MEDS ORDERED: ONDANSETRON HCL INJ/PF 4 MG/2 ML SDV IV PRN (10:11)
[2019-06-28] MEDS ORDERED: LEVALBUTEROL HCL NEB 1.25 MG/3 ML AMPUL NEB PRN (10:11)
[2019-06-28] MEDS ORDERED: TEMAZEPAM 7.5 MG CAPSULE PO PRN (10:11)
[2019-06-28] MEDS ORDERED: (PENDING PHARMACY ID) (Albuterol Sulfate 2 PUFF) IH PRN ×2 (10:23→10:53)
[2019-06-28] MEDS ORDERED: FAMOTIDINE INJ/PF 20 MG/2 ML SDV IV SCH ×2 (10:30→11:00)
--- NOTE | 2019-06-28 10:36 | PDOC H&P ---
History of Present Illness Admission Date/PCP: [facility] History of Present Illness: KATH HART is a 63 year old male who states that last night around 1230 tripped and fell. Patient states he had been drinking beer last night. Came into the emergency room this morning complaining of left hip pain and left wrist pain. Patient states he waited because he thought it might get better. Evidently patient has had several falls in the past and has had several x-rays of his left hip in the past in November 2018 he had an x-ray of the left hip in January 2019 x-ray of the left hip. These x-rays were for left hip pain and both showed degenerative changes only. This morning he came in to the emergency room and x-rays revealed a intertrochanteric fracture of the left hip and a small nondisplaced fracture of the left ulnar styloid. Patient has a splint applied to the left forearm, and is scheduled for surgery for pinning of the left hip later this afternoon. Patient's past medical history is significant for alcohol abuse. Patient states he drinks about a sixpack of beer every 3 to 4 days. Patient states he has cirrhosis of the liver secondary to his alcoholism. Patient is on Lasix folic acid and thiamine as a result of his liver disease and alcohol abuse. Patient tells me he has no history of hypertension nor any history of diabetes. Patient also tells me he is never had a stroke or heart attack. Patient tells me that he has a history of COPD but he very rarely uses his inhaler. Patient also tells me he is a daily cigarette smoker Patient states he is single and lives alone but has friends that will be able to help him rehab. Patient's next of kin is a brother who lives in [place], [place]. Past Medical History Pulmonary Medical History: Reports: Chronic Obstructive Pulmonary Disease (COPD) GI Medical History: Reports: Cirrhosis, Hepatitis - Otitis he Psychiatric Medical History: Reports: Alcohol Dependency, Tobacco Dependency Social History Lives with: Alone Smoking Status: Current Every Day Smoker Electronic Cigarette use?: No - Advance Directive Resuscitation Status: Full Code Family History Family History: Reviewed & Not Pertinent Parental Family History Reviewed: No Children Family History Reviewed: No Sibling(s) Family History Reviewed.: No Medication/Allergy Home Medications: Folic Acid 1 mg PO DAILY #30 tablet 05/29/15 Furosemide [Lasix 20 mg Tablet] 20 mg PO QAM #30 tablet 05/29/15 Thiamine HCl [Thiamine 100 mg Tablet] 100 mg PO DAILY #30 tablet 05/29/15 Albuterol Sulfate [Proair HFA Inhalation Aerosol 8.5 gm MDI] 2 puff IH Q4HP PRN 06/28/19 Allergies/Adverse Reactions: No Known Allergies Allergy (Verified 06/28/19 06:41) Review of Systems Constitutional: ABSENT: chills, fever(s), headache(s), weight gain, weight loss Cardiovascular: ABSENT: chest pain, dyspnea on exertion, edema, orthropnea, palpitations Respiratory: ABSENT: cough, hemoptysis Neurological: ABSENT: abnormal gait, abnormal speech, confusion, dizziness, focal weakness, syncope Psychiatric: ABSENT: anxiety, depression, homidical ideation, suicidal ideation Physical Exam Vital Signs: Temp Pulse Resp BP Pulse Ox 97.8 F 78 20 101/78 94 06/28/19 09:32 06/28/19 09:32 06/28/19 09:32 06/28/19 09:32 06/28/19 09:32 Intake & Output 06/27/19 06/28/19 06/29/19 06:59 06:59 06:59 Weight 80.739 kg General appearance: PRESENT: no acute distress, well-developed, well-nourished Respiratory exam: PRESENT: clear to auscultation julian. ABSENT: rales, rhonchi, wheezes Cardiovascular exam: PRESENT: RRR. ABSENT: diastolic murmur, rubs, systolic murmur Extremities exam: PRESENT: other - Deferred to orthopedics Neurological exam: PRESENT: alert, awake, oriented to person, oriented to place, oriented to time, oriented to situation, CN II-XII grossly intact. ABSENT: motor sensory deficit Psychiatric exam: PRESENT: appropriate affect, normal mood. ABSENT: homicidal ideation, suicidal ideation Results Laboratory Results: 06/28/19 07:30 06/28/19 07:30 06/28/19 06/28/19 07:30 07:30 WBC 6.0 RBC 3.82 L Hgb 14.1 Hct 40.3 MCV 106 H MCH 36.9 H MCHC 34.9 RDW 14.7 H Plt Count 95 L Seg Neutrophils % 79.8 H Sodium 136.7 L Potassium 4.4 Chloride 104 Carbon Dioxide 19 L Anion Gap 14 BUN 10 Creatinine 0.70 Est GFR ( Amer) > 60 Glucose 127 H Calcium 8.7 Total Bilirubin 2.3 H AST 100 H Alkaline Phosphatase 96 Total Protein 7.1 Albumin 3.1 L Impressions: Hip X-Ray 06/28/19 06:26 IMPRESSION: 1. Minimally displaced intertrochanteric fracture of the proximal left femur. 2. 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 Findings are similar when compared to the prior study. Wrist X-Ray 06/28/19 06:38 IMPRESSION: 1. Minimally displaced fracture of the ulnar styloid process. 2. Widening of the scapholunate joint space which may represent age indeterminate ligamentous injury. 3. Osteoarthritis particularly involving the 1st carpal metacarpal joint. 4. Punctate radiopaque foreign body projecting along the dorsal aspect of the distal radial metaphysis. Chest X-Ray 06/28/19 07:19 IMPRESSION: NO ACUTE RADIOGRAPHIC FINDING IN THE CHEST. Assessment and Plan - Diagnosis (1) Nondisplaced fracture of styloid process of left ulna Is this a current diagnosis for this admission?: Yes (2) COPD (chronic obstructive pulmonary disease) Is this a current diagnosis for this admission?: Yes (3) Tobacco abuse Is this a current diagnosis for this admission?: Yes (4) Alcohol abuse Is this a current diagnosis for this admission?: Yes (5) Cirrhosis of liver Is this a current diagnosis for this admission?: Yes (6) Displaced intertrochanteric fracture of left femur, initial encounter for closed fracture Is this a current diagnosis for this admission?: Yes - Plan Summary Summary: Patient will be admitted to the medicine service for medical management. Orthopedics will attend to the left ulnar fracture as well as the left hip fracture. Possibly surgery today. Patient will be watched closely for evidence of DTs however will not be treated prophylactically. Patient's cirrhosis will be monitored closely. Patient tells me he has never seen a waste elimination. April 2015 platelets were 50,000, October 2018 platelets were 62,000, and today platelets are 95,000 April 2015 INR was 2.55 today INR is 1.33 Liver functions have also been slowly increasing since April 2015 Chest x-ray today shows no acute cardiopulmonary disease EKG when compared to previous EKG shows no changes no acute findings. - Time Time Spent with patient: 35 or more minutes
[2019-06-28] MEDS: FAMOTIDINE INJ/PF 20 MG/2 ML SDV IV SCH ×2 (12:54→22:16)
[2019-06-28] MEDS: THIAMINE HCL 100 MG TABLET PO SCH (12:54)
[2019-06-28] MEDS: FOLIC ACID 1 MG TABLET PO SCH (12:54)
[2019-06-28] MEDS: FUROSEMIDE 20 MG TABLET PO SCH (12:55)
[2019-06-28] MEDS ORDERED: FUROSEMIDE 20 MG TABLET PO ONE (13:00)
[2019-06-28] MEDS ORDERED: THIAMINE HCL 100 MG TABLET PO ONE (13:00)
[2019-06-28] MEDS ORDERED: FOLIC ACID 1 MG TABLET PO ONE (13:00)
[2019-06-28] MEDS: NORMAL SALINE 1000 ML 1,000 ML IV PRN (13:01)
[2019-06-28] MEDS: MORPHINE SULFATE 10 MG/ML INJ IV PRN ×2 (18:29→20:43)
[2019-06-28 23:15] LABS: APPEARANCE,URINE CLEAR; BILIRUBIN,URINE NEGATIVE (NEGATIVE); COLOR,URINE YELLOW; GLUCOSE, URINE NEGATIVE (NEGATIVE); KETONES,URINE NEGATIVE (NEGATIVE); PROTEIN,URINE NEGATIVE (NEGATIVE); URINE SPECIFIC GRAVITY 1.013
[2019-06-29] MEDS: MORPHINE SULFATE 10 MG/ML INJ IV PRN ×4 (00:26→22:25)
[2019-06-29 05:07] LABS: ABSOLUTE BASOPHILS # (AUTO) 0.1 10^3/uL (0.0-0.2); ABSOLUTE EOSINOPHILS # (AUTO) 0.1 10^3/uL (0.0-0.6); ABSOLUTE LYMPHOCYTES (AUTO) 1.7 10^3/uL (0.5-4.7); ABSOLUTE MONOCYTES (AUTO) 1.3 10^3/uL (0.1-1.4); EOSINOPHILS % (AUTO) 0.8 % (0-6); HEMATOCRIT 36.2 % (37.9-51.0); HEMOGLOBIN 12.9 g/dL (13.5-17.0); LYMPHOCYTES % (AUTO) 23.6 % (13-45); MEAN CORPUSCULAR HEMOGLOBIN 36.5 pg (27.0-33.4); MEAN CORPUSCULAR HGB CONC 35.6 g/dL (32.0-36.0); MEAN CORPUSCULAR VOLUME 103 fl (80-97); MONOCYTES % (AUTO) 18.3 % (3-13); RED BLOOD COUNT 3.52 10^6/uL (4.35-5.55); RED CELL DISTRIBUTION WIDTH 14.2 % (11.5-14.0); SEGMENTED NEUTROPHILS % (AUTO) 56.3 % (42-78); TOTAL CELLS COUNTED % (AUTO) 100 %; WHITE BLOOD COUNT 7.1 10^3/uL (4.0-10.5)
[2019-06-29 05:17] LABS: PROTHROMBIN TIME 16.3 SEC (11.4-15.4)
[2019-06-29 05:18] LABS: PARTIAL THROMBOPLASTIN TIME 40.1 SEC (23.5-35.8)
[2019-06-29 05:26] LABS: ALBUMIN 2.7 g/dL (3.5-5.0); ALKALINE PHOSPHATASE 76 U/L (38-126); ASPARTATE AMINO TRANSFERASE 65 U/L (17-59); BILIRUBIN,TOTAL 3.4 mg/dL (0.2-1.3); BLOOD UREA NITROGEN 16 mg/dL (7-20); CALCIUM 8.1 mg/dL (8.4-10.2); CARBON DIOXIDE 24 mmol/L (22-30); CHLORIDE 105 mmol/L (98-107); GLUCOSE 97 mg/dL (75-110); TOTAL PROTEIN 6.3 g/dL (6.3-8.2)
[2019-06-29 05:31] LABS: PLATELET COUNT 86 10^3/uL (150-450)
[2019-06-29 05:57] LABS: ANION GAP 4 (5-19)
[2019-06-29] MEDS: NORMAL SALINE 1000 ML 1,000 ML IV PRN (07:30)
[2019-06-29] MEDS: FUROSEMIDE 20 MG TABLET PO SCH (07:37)
[2019-06-29] MEDS ORDERED: FENTANYL CITRATE INJ/PF 100 MCG/2 ML AMPUL ONE (09:15)
[2019-06-29] MEDS: FAMOTIDINE INJ/PF 20 MG/2 ML SDV IV SCH ×2 (09:16→22:26)
[2019-06-29] MEDS ORDERED: PROPOFOL INJ 200 MG/20 ML VIAL IV ONE (09:16)
[2019-06-29] MEDS ORDERED: MIDAZOLAM 2 MG/2 ML INJ ONE (09:16)
[2019-06-29] MEDS ORDERED: MORPHINE SULFATE 10 MG/ML INJ ONE (09:16)
[2019-06-29] MEDS ORDERED: LIDOCAINE 1% INJ-PF (10 MG/ML) 30 ML SDV ONE (09:54)
[2019-06-29] MEDS ORDERED: KETOROLAC TROMETHAMINE INJ/PF 30 MG/1 ML SDV ONE (09:54)
[2019-06-29] MEDS ORDERED: BUPIVACAINE HCL 0.25 % INJ/PF (2.5 MG/1 ML) 30 ML VIAL ONE (09:54)
[2019-06-29] MEDS ORDERED: BUPIVACAINE HCL 0.5 % INJ/PF 30 ML SDV ONE (10:05)
[2019-06-29] MEDS ORDERED: CEFAZOLIN INJ 1 GM VIAL ONE (10:23)
[2019-06-29] MEDS ORDERED: SUCCINYLCHOLINE CHLORIDE INJ 200 MG/10 ML VIAL ONE (10:44)
[2019-06-29] MEDS ORDERED: PROMETHAZINE HCL INJ 25 MG/1 ML VIAL IV PRN ×2 (10:59)
[2019-06-29] MEDS ORDERED: DIPHENHYDRAMINE HCL 50 MG/ML VIAL IV PRN (10:59)
[2019-06-29] MEDS ORDERED: MEPERIDINE HCL/PF INJ 25 MG/1 ML DISP.SYRIN IV PRN (10:59)
[2019-06-29] MEDS ORDERED: MORPHINE SULFATE 10 MG/ML INJ IV PRN (10:59)
[2019-06-29] MEDS ORDERED: FENTANYL CITRATE INJ/PF 100 MCG/2 ML AMPUL IV PRN ×3 (10:59)
--- NOTE | 2019-06-29 11:22 | PDOC PROGRESS REPORT ---
Subjective Progress Note for:: 06/29/19 Reason For Visit: ALCOHOL ABUSE,CIRRHOSIS OF THE LIVER,COPD,FALL, 06/29/2019 Alcohol abuse, left hip fracture, thrombocytopenia, cirrhosis of the liver Physical Exam Vital Signs: Temp Pulse Resp BP Pulse Ox 98.3 F 84 20 119/62 94 06/29/19 07:36 06/29/19 07:36 06/29/19 07:36 06/29/19 07:36 06/29/19 07:36 Intake & Output 06/28/19 06/29/19 06/30/19 06:59 06:59 06:59 Intake Total 1220 0 Output Total 500 Balance 720 0 Weight 80.739 kg 80.4 kg General appearance: PRESENT: no acute distress, other - Leaping comfortably Respiratory exam: PRESENT: clear to auscultation julian. ABSENT: rales, rhonchi, wheezes Cardiovascular exam: PRESENT: RRR. ABSENT: diastolic murmur, rubs, systolic murmur Neurological exam: PRESENT: alert, awake, oriented to person, oriented to place, oriented to time, oriented to situation, CN II-XII grossly intact, other - Rouses easily. ABSENT: motor sensory deficit Psychiatric exam: PRESENT: appropriate affect, normal mood. ABSENT: homicidal ideation, suicidal ideation Results Laboratory Results: 06/29/19 04:53 06/29/19 04:53 06/28/19 06/28/19 06/28/19 11:03 11:03 22:27 WBC RBC Hgb Hct MCV MCH MCHC RDW Plt Count Seg Neutrophils % Sodium Potassium Chloride Carbon Dioxide Anion Gap BUN Creatinine Est GFR ( Amer) Glucose Calcium Magnesium Total Bilirubin AST Alkaline Phosphatase Ammonia 32.9 Total Protein Albumin Urine Color YELLOW Urine Appearance CLEAR Urine pH 5.0 Ur Specific [place] 1.013 Urine Protein NEGATIVE Urine Glucose (UA) NEGATIVE Urine Ketones NEGATIVE Urine Blood SMALL H Urine RBC (Auto) 1 Blood Type A POSITIVE Antibody Screen NEGATIVE 06/29/19 06/29/19 06/29/19 04:53 04:53 04:53 WBC 7.1 RBC 3.52 L Hgb 12.9 L Hct 36.2 L MCV 103 H MCH 36.5 H MCHC 35.6 RDW 14.2 H Plt Count 86 L Seg Neutrophils % 56.3 Sodium 133.4 L Potassium 4.0 Chloride 105 Carbon Dioxide 24 Anion Gap 4 L BUN 16 Creatinine 0.64 Est GFR ( Amer) > 60 Glucose 97 Calcium 8.1 L Magnesium 1.8 Total Bilirubin 3.4 H AST 65 H Alkaline Phosphatase 76 Ammonia 42.7 H Total Protein 6.3 Albumin 2.7 L Urine Color Urine Appearance Urine pH Ur Specific [place] Urine Protein Urine Glucose (UA) Urine Ketones Urine Blood Urine RBC (Auto) Blood Type Antibody Screen Impressions: Hip X-Ray 06/28/19 06:26 IMPRESSION: 1. Minimally displaced intertrochanteric fracture of the proximal left femur. 2. 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 Findings are similar when compared to the prior study. Wrist X-Ray 06/28/19 06:38 IMPRESSION: 1. Minimally displaced fracture of the ulnar styloid process. 2. Widening of the scapholunate joint space which may represent age indeterminate ligamentous injury. 3. Osteoarthritis particularly involving the 1st carpal metacarpal joint. 4. Punctate radiopaque foreign body projecting along the dorsal aspect of the distal radial metaphysis. Chest X-Ray 06/28/19 07:19 IMPRESSION: NO ACUTE RADIOGRAPHIC FINDING IN THE CHEST. Assessment and Plan - Diagnosis (1) Nondisplaced fracture of styloid process of left ulna Is this a current diagnosis for this admission?: Yes (2) COPD (chronic obstructive pulmonary disease) Is this a current diagnosis for this admission?: Yes (3) Tobacco abuse Is this a current diagnosis for this admission?: Yes (4) Alcohol abuse Is this a current diagnosis for this admission?: Yes (5) Cirrhosis of liver Is this a current diagnosis for this admission?: Yes (6) Displaced intertrochanteric fracture of left femur, initial encounter for closed fracture Is this a current diagnosis for this admission?: Yes (7) Thrombocytopenia concurrent with and due to alcoholism Is this a current diagnosis for this admission?: Yes - Plan Summary Summary: Patient will be admitted to the medicine service for medical management. Orthopedics will attend to the left ulnar fracture as well as the left hip fracture. Possibly surgery today. Patient will be watched closely for evidence of DTs however will not be treated prophylactically. Patient's cirrhosis will be monitored closely. Patient tells me he has never seen a chief marketing officer. April 2015 platelets were 50,000, October 2018 platelets were 62,000, and today platelets are 95,000 April 2015 INR was 2.55 today INR is 1.33 Liver functions have also been slowly increasing since April 2015 Chest x-ray today shows no acute cardiopulmonary disease EKG when compared to previous EKG shows no changes no acute findings. 06/29/2019 Patient seen briefly this morning prior to surgery left hip fracture. Its have gone down to 86,000. I have ordered 1 unit of platelets. I feel like this will be beneficial during patient's recovery from surgery. It is not absolutely necessary for surgery to proceed, however due to his history I think it is better to be ahead than to get behind Patient's ammonia level is also slightly elevated higher than admission. Liver function slightly improved - Time Time Spent with patient: 25-34 minutes
--- NOTE | 2019-06-29 11:50 | PDOC CONSULTATION ---
Consultation Consult Date: 06/29/19 Provider Consulted: ZAIDA TARIQ JR History of Present Illness Admission Date/PCP: 06/28/19 10:31 [facility] Patient complains of: Left hip pain History of Present Illness: KATH HART is a 63 year old male who fell at home last night when his cane reportedly gave way. Patient is an alcoholic and had been drinking beer at the time. He came to the emergency room complaining of left hip and left wrist pain and inability to ambulate due to severity of pain. He has a history of left hip osteoarthritis as well with chronic left hip pain prior to this, which led to some of the delay of him presenting to the emergency department. The patient drinks beer on a daily basis, reportedly 1-2 a day but he does have a history of liver cirrhosis which may imply a heavier amount of drinking. He smokes regularly and lives at home alone. He describes left hip pain is severe and debilitating, worse with any attempted range of motion, improved with rest. Constant pain that is unable to be controlled on current pain medications. He denies associated lower extremity motor changes or sensory changes. Denies any radiating symptoms. Pain in the left wrist is described as 4 out of 10, improved with immobilization. He was placed in a splint in the emergency department. Pain is described as aching in nature. Pain medication is adequately improving his left wrist pain. He denies associated elbow pain and denies sensorimotor loss in the left upper extremity. He does report some numbness since the splint is been placed but attributes it to the tightness of the splint. Past Medical History Cardiac Medical History: Reports: Hypertension Pulmonary Medical History: Reports: Chronic Obstructive Pulmonary Disease (COPD) GI Medical History: Reports: Cirrhosis, Hepatitis - Otitis he Psychiatric Medical History: Reports: Alcohol Dependency, Tobacco Dependency Social History Lives with: Alone Smoking Status: Current Every Day Smoker Electronic Cigarette use?: No Frequency of Alcohol Use: Heavy Hx Recreational Drug Use: No Drugs: None Hx Prescription Drug Abuse: No - Advance Directive Resuscitation Status: Full Code Family History Family History: Reviewed & Not Pertinent Parental Family History Reviewed: No Children Family History Reviewed: NA Sibling(s) Family History Reviewed.: NA Medication/Allergy Home Medications: Folic Acid 1 mg PO DAILY #30 tablet 05/29/15 Furosemide [Lasix 20 mg Tablet] 20 mg PO QAM #30 tablet 03/30/16 Thiamine HCl [Thiamine 100 mg Tablet] 100 mg PO DAILY #30 tablet 05/29/15 Albuterol Sulfate [Proair HFA Inhalation Aerosol 8.5 gm MDI] 2 puff IH Q4HP PRN 06/28/19 Allergies/Adverse Reactions: No Known Allergies Allergy (Verified 06/28/19 06:41) Review of Systems All systems: as per PMH Review of Systems: Constitutional: ABSENT: anorexia, chills, night sweats Cardiovascular: ABSENT: chest pain Respiratory: ABSENT: dyspnea Gastrointestinal: ABSENT: vomiting Genitourinary: ABSENT: dysuria Integumentary: ABSENT: rash Neurological: ABSENT: confusion, memory loss, numbness Psychiatric: ABSENT: hallucinations Hematologic/Lymphatic: ABSENT: easy bleeding All negative as above aside from that reported in the HPI and the following: Left hip pain, left wrist pain. Physical Exam Vital Signs: Temp Pulse Resp BP Pulse Ox 98.3 F 84 20 119/62 94 06/29/19 07:36 06/29/19 07:36 06/29/19 07:36 06/29/19 07:36 06/29/19 07:36 Intake & Output 06/28/19 06/29/19 06/30/19 06:59 06:59 06:59 Intake Total 1220 0 Output Total 500 Balance 720 0 Weight 80.739 kg 80.4 kg Physical Exam: General appearance: PRESENT: no acute distress, cooperative, well-nourished Head exam: PRESENT: atraumatic, normocephalic Eye exam: PRESENT: EOMI Ear exam: PRESENT: normal external ear exam Mouth exam: PRESENT: neck supple Neck exam: ABSENT: tracheal deviation Respiratory exam: PRESENT: symmetrical, unlabored. ABSENT: accessory muscle use, wheezes Pulses: PRESENT: normal radial pulses, normal dorsalis pedis pulse Vascular exam: PRESENT: normal capillary refill GI/Abdominal exam: ABSENT: distended, firm Extremities exam: PRESENT: full ROM of bilateral shoulders, elbows wrists, knees, hips and ankles without pain aside from that noted below Musculoskeletal exam: PRESENT: full ROM, normal inspection of all 4 extremities aside from that noted below. Neurological exam: PRESENT: alert, awake, oriented to person, oriented to place, oriented to time Psychiatric exam: PRESENT: appropriate affect. ABSENT: agitated Focused psych exam: ABSENT: catatonic Skin exam: PRESENT: intact, jaundiced. ABSENT: dry All as above aside from that noted in the HPI and the following: Left lower extremity is grossly neurovascular intact. Skin is intact. Mild to moderate swelling of the left hip. Pain with any attempted range of motion of the left hip. Motor function intact EHL TA and gastroc. Pulses 2+ distally. Left leg shortened and externally rotated. Left upper extremity is currently in a splint. Sensation is grossly intact all fingers and all motor function is grossly intact. Skin is intact. Capillary refill is less than 2 seconds. No pain with palpation of elbow or range of motion. Results Laboratory Results: 06/29/19 04:53 06/29/19 04:53 06/28/19 06/28/19 06/28/19 11:03 11:03 22:27 WBC RBC Hgb Hct MCV MCH MCHC RDW Plt Count Seg Neutrophils % Sodium Potassium Chloride Carbon Dioxide Anion Gap BUN Creatinine Est GFR ( Amer) Glucose Calcium Magnesium Total Bilirubin AST Alkaline Phosphatase Ammonia 32.9 Total Protein Albumin Urine Color YELLOW Urine Appearance CLEAR Urine pH 5.0 Ur Specific [place] 1.013 Urine Protein NEGATIVE Urine Glucose (UA) NEGATIVE Urine Ketones NEGATIVE Urine Blood SMALL H Urine RBC (Auto) 1 Blood Type A POSITIVE Antibody Screen NEGATIVE 06/29/19 06/29/19 06/29/19 04:53 04:53 04:53 WBC 7.1 RBC 3.52 L Hgb 12.9 L Hct 36.2 L MCV 103 H MCH 36.5 H MCHC 35.6 RDW 14.2 H Plt Count 86 L Seg Neutrophils % 56.3 Sodium 133.4 L Potassium 4.0 Chloride 105 Carbon Dioxide 24 Anion Gap 4 L BUN 16 Creatinine 0.64 Est GFR ( Amer) > 60 Glucose 97 Calcium 8.1 L Magnesium 1.8 Total Bilirubin 3.4 H AST 65 H Alkaline Phosphatase 76 Ammonia 42.7 H Total Protein 6.3 Albumin 2.7 L Urine Color Urine Appearance Urine pH Ur Specific [place] Urine Protein Urine Glucose (UA) Urine Ketones Urine Blood Urine RBC (Auto) Blood Type Antibody Screen Impressions: Hip X-Ray 06/28/19 06:26 IMPRESSION: 1. Minimally displaced intertrochanteric fracture of the proximal left femur. 2. 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 Findings are similar when compared to the prior study. Wrist X-Ray 06/28/19 06:38 IMPRESSION: 1. Minimally displaced fracture of the ulnar styloid process. 2. Widening of the scapholunate joint space which may represent age indeterminate ligamentous injury. 3. Osteoarthritis particularly involving the 1st carpal metacarpal joint. 4. Punctate radiopaque foreign body projecting along the dorsal aspect of the distal radial metaphysis. Chest X-Ray 06/28/19 07:19 IMPRESSION: NO ACUTE RADIOGRAPHIC FINDING IN THE CHEST. Assessment & Plan - Diagnosis (1) Displaced intertrochanteric fracture of left femur, initial encounter for closed fracture Is this a current diagnosis for this admission?: Yes Plan: Plan will be for OR today. Keep n.p.o. Hospitalist has written for transfusion of platelets due to his current count of about 85,000. This should not delay surgery. Ancef 2 g to be given in the operating room After surgical intervention the patient can be placed on appropriate anticoagulation for DVT per medicine for 6 weeks He will be weightbearing as tolerated Antibiotics x24 hours Dressing changes as needed. Pain control per medicine, recommend avoidance of IV narcotics. (2) Nondisplaced fracture of styloid process of left ulna Is this a current diagnosis for this admission?: Yes Plan: Fracture of left ulna styloid. We will place a removable splint that the patient should wear for comfort. I will see him in the office for further evaluation and instruction including potential physical therapy.
--- NOTE | 2019-06-29 11:58 | Operative Report ---
Operative Report DATE OF SURGERY: 06/29/19 PREOPERATIVE DIAGNOSIS: Left intertrochanteric fracture. POSTOPERATIVE DIAGNOSIS: Left hip intertrochanteric fracture OPERATION: Left hip sliding hip screw. SURGEON: ZAIDA TARIQ JR ANESTHESIA: GA COMPLICATIONS: None ESTIMATED BLOOD LOSS: 200 cc PROCEDURE: DESCRIPTION OF OPERATION: The patient was brought to the operating room where spinal anesthetic was administered. Once the patient was comfortable, they was transferred over to the fracture table. A Arreguin catheter was present at the time prior to operation. IV antibiotics were administered preoperatively, 2 g of Ancef. The patient was secured onto the fracture table with a boot on the operative leg in a well leg gordon. A perineal post had been placed. The left lower extremity was secured down and longitudinal traction applied through the post. C-arm fluoroscopy was then brought in to check fracture alignment, and with adjustments we obtained near anatomic alignment on AP and lateral views. The lateral hip region was then prepped and draped out in the usual sterile fashion. An appropriate timeout was performed. A wire was utilized with fluoroscopy to localize the trajectory of the hip pen. Based off of this a line was drawn to represent the neck angle and are lateral incision was planned. The lateral incision was made followed by Bovie cautery of superficial bleeding. The lateral fascia was approached and dissected with cautery. After this blunt dissection was carried through the deep muscle to bone. The angle guide was placed onto bone and a pin was placed through this and checked with fluoroscopy. The femur was then drilled until we had the appropriate trajectory of the pin at the center of the head on 2 views. We measured this out to be 95. We then reamed to 10 less with a combination reamer and a long barrel. We tapped prior to screw insertion. The 80 screw was then inserted. Due to the estimated angle we went with a 130 plate. A 2 hole plate was selected along with appropriate sized head screw. This was inserted with the assistance of fluoroscopy followed by impaction of the plate against the bone. We then drilled and placed the 2 screws in the plate. Appropriate positioning was confirmed with AP and lateral fluoroscopy. A compression screw was applied to the head screw and then final fluoroscopy's were taken. All the wounds were then copiously irrigated.. The fascial layer was closed with 2-0 Monocryl in a running fashion. Subcutaneous tissue was closed with inverted 2-0 Monocryl, and the skin was closed with a running 3-0 Monocryl stitch. A sterile dressing was placed. The patient was then carefully transferred off the fracture table onto his hospital bed. The patient tolerated the procedure well and was brought to the recovery room in stable condition.
--- NOTE | 2019-06-29 12:27 | RADIOLOGY REPORT (SQ) ---
EXAM DESCRIPTION: NO CHG FLUORO; HIP IN OPERATING RM IMAGES COMPLETED DATE/TIME: 06/29/2019 11:55 am REASON FOR STUDY: ORIF LEFT HIP ASSISTED WITH FLUOROSCOPY IN OR COMPARISON: None. FLUOROSCOPY TIME: 0.9 minutes 3 images saved to PACS. TECHNIQUE: Intra-operative images acquired during surgical procedure to evaluate progress. NUMBER OF IMAGES: 3 LIMITATIONS: None. FINDINGS: Dynamic hip compression screw fixation of intertrochanteric femoral neck fracture. IMPRESSION: IMAGE(S) OBTAINED DURING PROCEDURE. COMMENT: Quality ID [id number]: Final reports for procedures using fluoroscopy that document radiation exp osure indices, or exposure time and number of fluorographic images (if radiation exposure indices are not available) Please consult full operative report of the attending physician for description of the procedure. TECHNICAL DOCUMENTATION: JOB ID: [id number] 2010 [employer]- All Rights Reserved Reading location - IP/workstation name: [email or web address]
--- NOTE | 2019-06-29 12:27 | RADIOLOGY REPORT (SQ) ---
EXAM DESCRIPTION: NO CHG FLUORO; HIP IN OPERATING RM IMAGES COMPLETED DATE/TIME: 06/29/2019 11:55 am REASON FOR STUDY: ORIF LEFT HIP ASSISTED WITH FLUOROSCOPY IN OR COMPARISON: None. FLUOROSCOPY TIME: 0.9 minutes 3 images saved to PACS. TECHNIQUE: Intra-operative images acquired during surgical procedure to evaluate progress. NUMBER OF IMAGES: 3 LIMITATIONS: None. FINDINGS: Dynamic hip compression screw fixation of intertrochanteric femoral neck fracture. IMPRESSION: IMAGE(S) OBTAINED DURING PROCEDURE. COMMENT: Quality ID [id number]: Final reports for procedures using fluoroscopy that document radiation exp osure indices, or exposure time and number of fluorographic images (if radiation exposure indices are not available) Please consult full operative report of the attending physician for description of the procedure. TECHNICAL DOCUMENTATION: JOB ID: [id number] 2010 [employer]- All Rights Reserved Reading location - IP/workstation name: [email or web address]
[2019-06-29] MEDS: FOLIC ACID 1 MG TABLET PO SCH (13:28)
[2019-06-29] MEDS: THIAMINE HCL 100 MG TABLET PO SCH (13:28)
--- NOTE | 2019-06-29 13:40 | RADIOLOGY REPORT (SQ) ---
EXAM DESCRIPTION: HIP LEFT AP/LATERAL IMAGES COMPLETED DATE/TIME: 06/29/2019 1:12 pm REASON FOR STUDY: Postop COMPARISON: 06/28/2019. NUMBER OF VIEWS: Two views. TECHNIQUE: AP pelvis and additional frog-leg view of the left hip. LIMITATIONS: None. FINDINGS: MINERALIZATION: Normal. LEFT HIP: Interval surgical fixation with hardware. Severe degenerative changes with joint space los s, sclerosis, osteophytes, and irregular contour of the femoral head. RIGHT HIP: No fracture or dislocation. No worrisome bone lesions. PUBIS AND ISCHIUM: No fracture. PELVIS: No fracture. SACRUM: No fracture or dislocation. No worrisome bone lesions. LOWER LUMBAR SPINE: No fracture or dislocation. No worrisome bone lesions. No significant disc disea se. SOFT TISSUES: No findings. OTHER: No other significant finding. IMPRESSION: INTERVAL SURGICAL FIXATION OF THE LEFT HIP FRACTURE. SEVERE DEGENERATIVE CHANGES IN THE LEFT HIP JOINT. TECHNICAL DOCUMENTATION: JOB ID: [id number] 2010 [employer]- All Rights Reserved Reading location - IP/workstation name: [email or web address]
[2019-06-29] MEDS: CEFAZOLIN SODIUM 2 GM in DEXTROSE 5%-WATER 100 ML IV SCH (17:57)
--- NOTE | 2019-06-29 18:16 | Progress Note ---
Provider Note Provider Note: Patient has had is 1 unit of platelets infused this afternoon following surgery. According to the nurse patient is heavily sedated even after 6 hours following anesthesia. Patient's renal functions are normal but his liver functions are affected by his alcohol consumption and cirrhotic liver. I Have decreased his analgesic tonight to just 1 mg morphine every 4 hours. I do not want to use Toradol, and patient may need something tonight IV. Anticipate to switch over to p.o. nonnarcotic analgesics in the morning. Due to patient having spinal anesthesia will hold off on any anticoagulants for 24 hours. Anticipate starting Eliquis 2.5 mg p.o. twice daily for the next 6 weeks. Due to patient having cirrhosis, increased liver functions, as well as thrombocytopenia, will be need to monitor closely.
[2019-06-29] MEDS ORDERED: CEFAZOLIN 2 GM/D5W RTU 2 GM/50 ML RTUPB IV SCH (18:30)
[2019-06-30] MEDS: CEFAZOLIN SODIUM 2 GM in DEXTROSE 5%-WATER 100 ML IV SCH (01:54)
[2019-06-30] MEDS: MORPHINE SULFATE 10 MG/ML INJ IV PRN (02:31)
[2019-06-30 05:26] LABS: HEMATOCRIT 30.2 % (37.9-51.0); MEAN CORPUSCULAR HEMOGLOBIN 36.9 pg (27.0-33.4); MEAN CORPUSCULAR HGB CONC 35.5 g/dL (32.0-36.0); MEAN CORPUSCULAR VOLUME 104 fl (80-97); RED BLOOD COUNT 2.91 10^6/uL (4.35-5.55); RED CELL DISTRIBUTION WIDTH 14.1 % (11.5-14.0); WHITE BLOOD COUNT 6.5 10^3/uL (4.0-10.5)
[2019-06-30 05:27] LABS: INTERNATIONAL RATION (INR) 1.39; PROTHROMBIN TIME 17.2 SEC (11.4-15.4)
[2019-06-30 05:37] LABS: ALBUMIN 2.3 g/dL (3.5-5.0); ALKALINE PHOSPHATASE 67 U/L (38-126); ASPARTATE AMINO TRANSFERASE 49 U/L (17-59); BILIRUBIN,DIRECT 1.4 mg/dL (0.0-0.4); BILIRUBIN,TOTAL 3.5 mg/dL (0.2-1.3); BLOOD UREA NITROGEN 14 mg/dL (7-20); CALCIUM 7.6 mg/dL (8.4-10.2); CARBON DIOXIDE 24 mmol/L (22-30); GLUCOSE 89 mg/dL (75-110); POTASSIUM 3.7 mmol/L (3.6-5.0); TOTAL PROTEIN 5.6 g/dL (6.3-8.2)
[2019-06-30 05:48] LABS: ANION GAP 5 (5-19); CHLORIDE 102 mmol/L (98-107)
[2019-06-30 05:54] LABS: HEMOGLOBIN 10.8 g/dL (13.5-17.0)
[2019-06-30 05:59] LABS: ABSOLUTE LYMPHOCYTES# (MANUAL) 1.1 10^3/uL (0.5-4.7); ABSOLUTE MONOCYTES # (MANUAL) 0.9 10^3/uL (0.1-1.4); BAND NEUTROPHILS % (MANUAL) 2 % (3-5); BASOPHILS % (MANUAL) 0 % (0-2); EOSINOPHILS % (MANUAL) 0 % (0-6); LYMPHOCYTES % (MANUAL) 17 % (13-45); MONOCYTES % (MANUAL) 14 % (3-13); SEGMENTED NEUTROPHILS % (MAN) 67 % (42-78); TOTAL CELLS COUNTED 100
[2019-06-30 06:00] LABS: ANISOCYTOSIS SLIGHT
[2019-06-30 06:03] LABS: PLATELET COMMENT DECREASED
[2019-06-30 06:07] LABS: PLATELET COUNT 94 10^3/uL (150-450)
[2019-06-30] MEDS: FUROSEMIDE 20 MG TABLET PO SCH (09:31)
[2019-06-30] MEDS: FAMOTIDINE INJ/PF 20 MG/2 ML SDV IV SCH ×2 (09:31→22:00)
[2019-06-30] MEDS: THIAMINE HCL 100 MG TABLET PO SCH (09:31)
[2019-06-30] MEDS: FOLIC ACID 1 MG TABLET PO SCH (09:31)
[2019-06-30] MEDS: APIXABAN 2.5 MG TABLET PO SCH ×2 (11:27→18:24)
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
--- NOTE | 2019-06-30 14:30 | PDOC PROGRESS REPORT ---
Subjective Progress Note for:: 06/30/19 Subjective:: The patient is feeling well today. Reports walking by himself today with a walker and having minimal pain in his left hip. Pain is much improved over preoperative. Reason For Visit: ALCOHOL ABUSE,CIRRHOSIS OF THE LIVER,COPD,FALL, Physical Exam Vital Signs: Temp Pulse Resp BP Pulse Ox 98.4 F 78 19 137/66 H 96 06/30/19 07:16 06/30/19 07:16 06/30/19 07:16 06/30/19 07:16 06/30/19 07:16 Intake & Output 06/29/19 06/30/19 07/01/19 06:59 06:59 06:59 Intake Total 1220 3070 Output Total 500 900 Balance 720 2170 Weight 80.4 kg 79.5 kg Physical Exam: General appearance: PRESENT: no acute distress, cooperative, well-nourished Head exam: PRESENT: atraumatic, normocephalic Eye exam: PRESENT: EOMI Ear exam: PRESENT: normal external ear exam Mouth exam: PRESENT: neck supple Neck exam: ABSENT: tracheal deviation Respiratory exam: PRESENT: symmetrical, unlabored. ABSENT: accessory muscle use, wheezes Pulses: PRESENT: normal radial pulses, normal dorsalis pedis pulse Vascular exam: PRESENT: normal capillary refill GI/Abdominal exam: ABSENT: distended, firm Extremities exam: PRESENT: full ROM of bilateral shoulders, elbows wrists, knees, hips and ankles without pain Musculoskeletal exam: PRESENT: full ROM, normal inspection of all 4 extremities aside from that noted below. Neurological exam: PRESENT: alert, awake, oriented to person, oriented to place, oriented to time Psychiatric exam: PRESENT: appropriate affect. ABSENT: agitated Focused psych exam: ABSENT: catatonic Skin exam: PRESENT: intact. ABSENT: dry All as above aside from that noted in the HPI and the following: Left lower extremity -Pulses 2+ distally -Compartments soft -Wound clean dry and intact no drainage, appropriate appearance for postop day 1 -Sensation grossly intact to L3-4-5 S1 -Motor grossly intact to EHL TA gastroc and quad - Able to perform quad extension and elevate heel off of bed. Results Laboratory Results: 06/30/19 04:25 06/30/19 04:25 06/28/19 06/30/19 06/30/19 11:03 04:25 04:25 WBC 6.5 RBC 2.91 L Hgb 10.8 L D Hct 30.2 L MCV 104 H MCH 36.9 H MCHC 35.5 RDW 14.1 H Plt Count 94 L Seg Neutrophils % Not Reportable Sodium 130.5 L Potassium 3.7 Chloride 102 Carbon Dioxide 24 Anion Gap 5 BUN 14 Creatinine 0.56 Est GFR ( Amer) > 60 Glucose 89 Calcium 7.6 L Total Bilirubin 3.5 H AST 49 Alkaline Phosphatase 67 Total Protein 5.6 L Albumin 2.3 L Blood Type A POSITIVE Antibody Screen NEGATIVE Impressions: Wrist X-Ray 06/28/19 06:38 IMPRESSION: 1. Minimally displaced fracture of the ulnar styloid process. 2. Widening of the scapholunate joint space which may represent age indeterminate ligamentous injury. 3. Osteoarthritis particularly involving the 1st carpal metacarpal joint. 4. Punctate radiopaque foreign body projecting along the dorsal aspect of the distal radial metaphysis. Chest X-Ray 06/28/19 07:19 IMPRESSION: NO ACUTE RADIOGRAPHIC FINDING IN THE CHEST. Fluoroscopy 06/29/19 00:00 IMPRESSION: IMAGE(S) OBTAINED DURING PROCEDURE. Hip X-Ray 06/29/19 00:00 IMPRESSION: INTERVAL SURGICAL FIXATION OF THE LEFT HIP FRACTURE. SEVERE DEGENERATIVE CHANGES IN THE LEFT HIP JOINT. Assessment & Plan - Diagnosis (1) Displaced intertrochanteric fracture of left femur, initial encounter for closed fracture Is this a current diagnosis for this admission?: Yes Plan: - 2 doses of Ancef postoperatively q 8 hours to complete 24 hours perioperatively -Weightbearing as tolerated, no precautions, encourage out of bed [facility] for ADL training - PT/OT -aspirin 325 daily for DVT prophylaxis for 6 weeks -multimodal pain management to avoid excessive narcotics, including gabapentin, tramadol, Toradol, acetaminophen. -Dressing should not be removed for 7 to 10 days until seen in the office -May shower with the dressing intact, if it starts to come off she should not get the incision wet. -I would like to follow the patient my office within the next 7 to [address] at [address] [place] [address]. in [place] office #: [phone] (2) Nondisplaced fracture of styloid process of left ulna Is this a current diagnosis for this admission?: Yes - Time Time Spent with patient: Less than 15 minutes
[2019-06-30] MEDS: TRAMADOL HCL 50 MG TABLET PO PRN (18:24)
[2019-06-30] MEDS: NORMAL SALINE 1000 ML 1,000 ML IV PRN (18:27)
[2019-07-01] MEDS: TRAMADOL HCL 50 MG TABLET PO PRN ×3 (00:01→19:26)
[2019-07-01] MEDS: FUROSEMIDE 20 MG TABLET PO SCH (09:04)
[2019-07-01] MEDS: FOLIC ACID 1 MG TABLET PO SCH (09:04)
[2019-07-01] MEDS: THIAMINE HCL 100 MG TABLET PO SCH (09:04)
[2019-07-01] MEDS: FAMOTIDINE INJ/PF 20 MG/2 ML SDV IV SCH ×2 (09:05→22:03)
[2019-07-01] MEDS: APIXABAN 2.5 MG TABLET PO SCH (09:05)
--- NOTE | 2019-07-01 12:04 | PDOC PROGRESS REPORT ---
Subjective Progress Note for:: 07/01/19 Reason For Visit: ALCOHOL ABUSE,CIRRHOSIS OF THE LIVER,COPD,FALL, 07/01/2019 Fracture left hip, fall, alcohol abuse, cirrhosis of the liver, COPD Physical Exam Vital Signs: Temp Pulse Resp BP Pulse Ox 98.3 F 73 16 106/59 L 96 07/01/19 07:34 07/01/19 07:34 07/01/19 07:34 07/01/19 07:34 07/01/19 07:34 Intake & Output 06/30/19 07/01/19 07/02/19 06:59 06:59 06:59 Intake Total 3070 705 Output Total 900 1225 Balance 2170 -520 Weight 79.5 kg 74.4 kg General appearance: PRESENT: no acute distress Respiratory exam: PRESENT: clear to auscultation julian. ABSENT: rales, rhonchi, wheezes Cardiovascular exam: PRESENT: RRR. ABSENT: diastolic murmur, rubs, systolic murmur Extremities exam: PRESENT: other - Deferred to Ortho Neurological exam: PRESENT: alert, awake, oriented to person, oriented to place, oriented to time, oriented to situation, CN II-XII grossly intact. ABSENT: motor sensory deficit Psychiatric exam: PRESENT: appropriate affect, normal mood. ABSENT: homicidal ideation, suicidal ideation Results Laboratory Results: 06/30/19 04:25 06/30/19 04:25 Impressions: Wrist X-Ray 06/28/19 06:38 IMPRESSION: 1. Minimally displaced fracture of the ulnar styloid process. 2. Widening of the scapholunate joint space which may represent age indeterminate ligamentous injury. 3. Osteoarthritis particularly involving the 1st carpal metacarpal joint. 4. Punctate radiopaque foreign body projecting along the dorsal aspect of the distal radial metaphysis. Chest X-Ray 06/28/19 07:19 IMPRESSION: NO ACUTE RADIOGRAPHIC FINDING IN THE CHEST. Fluoroscopy 06/29/19 00:00 IMPRESSION: IMAGE(S) OBTAINED DURING PROCEDURE. Hip X-Ray 06/29/19 00:00 IMPRESSION: INTERVAL SURGICAL FIXATION OF THE LEFT HIP FRACTURE. SEVERE DEGENERATIVE CHANGES IN THE LEFT HIP JOINT. Assessment and Plan - Diagnosis (1) Nondisplaced fracture of styloid process of left ulna Is this a current diagnosis for this admission?: Yes (2) COPD (chronic obstructive pulmonary disease) Is this a current diagnosis for this admission?: Yes (3) Tobacco abuse Is this a current diagnosis for this admission?: Yes (4) Alcohol abuse Is this a current diagnosis for this admission?: Yes (5) Cirrhosis of liver Is this a current diagnosis for this admission?: Yes (6) Displaced intertrochanteric fracture of left femur, initial encounter for closed fracture Is this a current diagnosis for this admission?: Yes (7) Thrombocytopenia concurrent with and due to alcoholism Is this a current diagnosis for this admission?: Yes - Plan Summary Summary: Patient will be admitted to the medicine service for medical management. Orthopedics will attend to the left ulnar fracture as well as the left hip fracture. Possibly surgery today. Patient will be watched closely for evidence of DTs however will not be treated prophylactically. Patient's cirrhosis will be monitored closely. Patient tells me he has never seen a oracle forms developer. April 2015 platelets were 50,000, October 2018 platelets were 62,000, and today platelets are 95,000 April 2015 INR was 2.55 today INR is 1.33 Liver functions have also been slowly increasing since April 2015 Chest x-ray today shows no acute cardiopulmonary disease EKG when compared to previous EKG shows no changes no acute findings. 06/29/2019 Patient seen briefly this morning prior to surgery left hip fracture. Its have gone down to 86,000. I have ordered 1 unit of platelets. I feel like this will be beneficial during patient's recovery from surgery. It is not absolutely necessary for surgery to proceed, however due to his history I think it is better to be ahead than to get behind Patient's ammonia level is also slightly elevated higher than admission. Liver function slightly improved 06/30/2019 Vital signs are stable temperature 98.9, pulse is 86, blood pressure 140/67, ox ygen saturation is 94% on room air Patient's hemoglobin is stable 10.8, platelets are at 94,000 following surgery and 1 unit of platelets Patient's INR is 1.3 and his liver functions are better I have started him on Eliquis 2.5 mg every 12 hours. I held this approximately 18 hours following spinal anesthesia I have also DC'd patient's IV pain medication and switch him to p.o. Ultram Patient is going to get up today with physical therapy. Will discharge patient when released by orthopedics 07/01/2019 Patient appears medically stable Did not recheck labs today but will do so tomorrow Vital signs are stable today Per orthopedics recommendation have DC'd Yessenia and will start patient on 325 aspirin Have spaced Ultram back to 1 every 6 hours, only to help him with his ambulation and physical therapy. Will not DC on any narcotics or prescription pain meds. Physical therapy states they recommend intermediate/ rehab at time of discharge. Patient did ambulate 33 feet today. I put an order in for discharge planning to start the process. No signs of DVT at this time - Time Time Spent with patient: 25-34 minutes
[2019-07-02] MEDS: TRAMADOL HCL 50 MG TABLET PO PRN ×3 (01:25→21:00)
[2019-07-02] MEDS: FUROSEMIDE 20 MG TABLET PO SCH (07:30)
[2019-07-02] MEDS: THIAMINE HCL 100 MG TABLET PO SCH (09:07)
[2019-07-02] MEDS: FAMOTIDINE INJ/PF 20 MG/2 ML SDV IV SCH (09:07)
[2019-07-02] MEDS: FOLIC ACID 1 MG TABLET PO SCH (09:07)
[2019-07-02] MEDS: ASPIRIN 325 MG TABLET PO SCH (09:07)
[2019-07-02 09:22] LABS: ABSOLUTE BASOPHILS # (AUTO) 0.1 10^3/uL (0.0-0.2); ABSOLUTE EOSINOPHILS # (AUTO) 0.2 10^3/uL (0.0-0.6); ABSOLUTE LYMPHOCYTES (AUTO) 1.1 10^3/uL (0.5-4.7); ABSOLUTE MONOCYTES (AUTO) 0.8 10^3/uL (0.1-1.4); ABSOLUTE NEUT (AUTO) 2.1 10^3/uL (1.7-8.2); BASOPHILS % (AUTO) 1.6 % (0-2); EOSINOPHILS % (AUTO) 4.8 % (0-6); HEMATOCRIT 29.3 % (37.9-51.0); HEMOGLOBIN 10.6 g/dL (13.5-17.0); LYMPHOCYTES % (AUTO) 24.9 % (13-45); MEAN CORPUSCULAR HEMOGLOBIN 37.3 pg (27.0-33.4); MEAN CORPUSCULAR HGB CONC 36.4 g/dL (32.0-36.0); MEAN CORPUSCULAR VOLUME 103 fl (80-97); MONOCYTES % (AUTO) 19.2 % (3-13); PLATELET COUNT 120 10^3/uL (150-450); RED BLOOD COUNT 2.85 10^6/uL (4.35-5.55); RED CELL DISTRIBUTION WIDTH 14.1 % (11.5-14.0); SEGMENTED NEUTROPHILS % (AUTO) 49.5 % (42-78); TOTAL CELLS COUNTED % (AUTO) 100 %; WHITE BLOOD COUNT 4.3 10^3/uL (4.0-10.5)
[2019-07-02 09:24] LABS: INTERNATIONAL RATION (INR) 1.32; PROTHROMBIN TIME 16.5 SEC (11.4-15.4)
[2019-07-02 09:35] LABS: BLOOD UREA NITROGEN 13 mg/dL (7-20); CALCIUM 7.7 mg/dL (8.4-10.2); CARBON DIOXIDE 26 mmol/L (22-30); GLUCOSE 108 mg/dL (75-110); POTASSIUM 3.3 mmol/L (3.6-5.0)
[2019-07-02 09:41] LABS: ANION GAP 5 (5-19); CHLORIDE 101 mmol/L (98-107)
--- NOTE | 2019-07-02 12:04 | PDOC PROGRESS REPORT ---
Subjective Progress Note for:: 07/02/19 Reason For Visit: ALCOHOL ABUSE,CIRRHOSIS OF THE LIVER,COPD,FALL, 07/02/2019 Admitted for fracture of the left hip secondary to a fall, alcohol abuse, cirrhosis of the liver, COPD Physical Exam Vital Signs: Temp Pulse Resp BP Pulse Ox 98.3 F 62 16 103/58 L 97 07/02/19 07:14 07/02/19 07:14 07/02/19 07:14 07/02/19 07:14 07/02/19 07:14 Intake & Output 07/01/19 07/02/19 07/03/19 06:59 06:59 06:59 Intake Total 705 2660 Output Total 1225 1500 Balance -520 1160 Weight 74.4 kg 76.8 kg General appearance: PRESENT: mild distress, other - Postop left hip pain Respiratory exam: PRESENT: clear to auscultation julian. ABSENT: rales, rhonchi, wheezes Cardiovascular exam: PRESENT: RRR. ABSENT: diastolic murmur, rubs, systolic murmur Extremities exam: PRESENT: other - Postop surgical site of the left hip shows no drainage no redness Neurological exam: PRESENT: alert, awake, oriented to person, oriented to place, oriented to time, oriented to situation, CN II-XII grossly intact. ABSENT: motor sensory deficit Psychiatric exam: PRESENT: appropriate affect, normal mood. ABSENT: homicidal ideation, suicidal ideation Results Laboratory Results: 07/02/19 09:08 07/02/19 09:08 07/02/19 07/02/19 09:08 09:08 WBC 4.3 RBC 2.85 L Hgb 10.6 L Hct 29.3 L MCV 103 H MCH 37.3 H MCHC 36.4 H RDW 14.1 H Plt Count 120 L Seg Neutrophils % 49.5 Sodium 131.6 L Potassium 3.3 L Chloride 101 Carbon Dioxide 26 Anion Gap 5 BUN 13 Creatinine 0.56 Est GFR ( Amer) > 60 Glucose 108 Calcium 7.7 L Impressions: Wrist X-Ray 06/28/19 06:38 IMPRESSION: 1. Minimally displaced fracture of the ulnar styloid process. 2. Widening of the scapholunate joint space which may represent age indeterminate ligamentous injury. 3. Osteoarthritis particularly involving the 1st carpal metacarpal joint. 4. Punctate radiopaque foreign body projecting along the dorsal aspect of the distal radial metaphysis. Chest X-Ray 06/28/19 07:19 IMPRESSION: NO ACUTE RADIOGRAPHIC FINDING IN THE CHEST. Fluoroscopy 06/29/19 00:00 IMPRESSION: IMAGE(S) OBTAINED DURING PROCEDURE. Hip X-Ray 06/29/19 00:00 IMPRESSION: INTERVAL SURGICAL FIXATION OF THE LEFT HIP FRACTURE. SEVERE DEGENERATIVE CHANGES IN THE LEFT HIP JOINT. Assessment and Plan - Diagnosis (1) Nondisplaced fracture of styloid process of left ulna Is this a current diagnosis for this admission?: Yes (2) COPD (chronic obstructive pulmonary disease) Is this a current diagnosis for this admission?: Yes (3) Tobacco abuse Is this a current diagnosis for this admission?: Yes (4) Alcohol abuse Is this a current diagnosis for this admission?: Yes (5) Cirrhosis of liver Is this a current diagnosis for this admission?: Yes (6) Displaced intertrochanteric fracture of left femur, initial encounter for closed fracture Is this a current diagnosis for this admission?: Yes (7) Thrombocytopenia concurrent with and due to alcoholism Is this a current diagnosis for this admission?: Yes - Plan Summary Summary: Patient will be admitted to the medicine service for medical management. Orthopedics will attend to the left ulnar fracture as well as the left hip f racture. Possibly surgery today. Patient will be watched closely for evidence of DTs however will not be treated prophylactically. Patient's cirrhosis will be monitored closely. Patient tells me he has never seen a community center worker. April 2015 platelets were 50,000, October 2018 platelets were 62,000, and today platelets are 95,000 April 2015 INR was 2.55 today INR is 1.33 Liver functions have also been slowly increasing since April 2015 Chest x-ray today shows no acute cardiopulmonary disease EKG when compared to previous EKG shows no changes no acute findings. 06/29/2019 Patient seen briefly this morning prior to surgery left hip fracture. Its have gone down to 86,000. I have ordered 1 unit of platelets. I feel like this will be beneficial during patient's recovery from surgery. It is not absolutely necessary for surgery to proceed, however due to his history I think it is better to be ahead than to get behind Patient's ammonia level is also slightly elevated higher than admission. Liver function slightly improved 06/30/2019 Vital signs are stable temperature 98.9, pulse is 86, blood pressure 140/67, oxygen saturation is 94% on room air Patient's hemoglobin is stable 10.8, platelets are at 94,000 following surgery and 1 unit of platelets Patient's INR is 1.3 and his liver functions are better I have started him on Eliquis 2.5 mg every 12 hours. I held this approximately 18 hours following spinal anesthesia I have also DC'd patient's IV pain medication and switch him to p.o. Ultram Patient is going to get up today with physical therapy. Will discharge patient when released by orthopedics 07/01/2019 Patient appears medically stable Did not recheck labs today but will do so tomorrow Vital signs are stable today Per orthopedics recommendation have DC'd Eliquis and will start patient on 325 aspirin Have spaced Ultram back to 1 every 6 hours, only to help him with his ambulation and physical therapy. Will not DC on any narcotics or prescription pain meds. Physical therapy states they recommend group home/ rehab at time of discharge. Patient did ambulate 33 feet today. I put an order in for discharge planning to start the process. No signs of DVT at this time 07/02/2019 I observed patient ambulating with walker and the assistance of physical the rapy. Patient ambulated about 75 feet. PTs recommendation was to continue skilled PT in acute setting after discharge. Discharge planning is working with the patient concerning patient's wishes as well as logistics. If patient goes home he will need group home assistance as well as physical therapy. Temperature 98.3 pulse 62 blood pressure 103/58 O2 sat 97% on room air Hemoglobin on admission 14.1 today 10.6 and appears to have stabilized Platelets on admission 95,000 yesterday 94,000, today platelets are up to 120,000 Plan to discharge patient from the hospitall tomorrow. Dressing over the left hip should not be removed until patient is seen in the office in 7 to 10 days, Approximately July 08 - Time Time Spent with patient: 25-34 minutes
[2019-07-02] MEDS: TEMAZEPAM 15 MG CAPSULE PO PRN (21:00)
[2019-07-02] MEDS: FAMOTIDINE 20 MG TABLET PO SCH (21:04)
[2019-07-03] MEDS: TRAMADOL HCL 50 MG TABLET PO PRN ×2 (05:59→21:39)
[2019-07-03] MEDS: FUROSEMIDE 20 MG TABLET PO SCH (07:42)
[2019-07-03] MEDS: FOLIC ACID 1 MG TABLET PO SCH (09:54)
[2019-07-03] MEDS: THIAMINE HCL 100 MG TABLET PO SCH (09:54)
[2019-07-03] MEDS: ASPIRIN 325 MG TABLET PO SCH (09:54)
[2019-07-03] MEDS: FAMOTIDINE 20 MG TABLET PO SCH ×2 (09:54→21:39)
[2019-07-03] MEDS ORDERED: ACETAMINOPHEN 325 MG TABLET PO PRN (12:29)
--- NOTE | 2019-07-03 12:36 | PDOC PROGRESS REPORT ---
Subjective Progress Note for:: 07/03/19 Reason For Visit: ALCOHOL ABUSE,CIRRHOSIS OF THE LIVER,COPD,FALL, 07/03/2019 Fracture of the left hip, fall, alcohol abuse, cirrhosis of the liver Physical Exam Vital Signs: Temp Pulse Resp BP Pulse Ox 98.0 F 63 16 96/51 L 94 07/03/19 11:22 07/03/19 11:22 07/03/19 11:22 07/03/19 11:22 07/03/19 11:22 Intake & Output 07/02/19 07/03/19 07/04/19 06:59 06:59 06:59 Intake Total 2660 1772 358 Output Total 1500 1150 800 Balance 1160 622 -442 Weight 76.8 kg 77.2 kg General appearance: PRESENT: mild distress - Postop pain, other Respiratory exam: PRESENT: clear to auscultation julian. ABSENT: rales, rhonchi, wheezes Cardiovascular exam: PRESENT: RRR. ABSENT: diastolic murmur, rubs, systolic murmur Extremities exam: PRESENT: other - Left hip dressing is dry clean with no sign of redness. Some soft tissue swelling around the incisional site probably secondary to postop bleeding Neurological exam: PRESENT: alert, awake, oriented to person, oriented to place, oriented to time, oriented to situation, CN II-XII grossly intact. ABSENT: motor sensory deficit Psychiatric exam: PRESENT: appropriate affect, normal mood. ABSENT: homicidal ideation, suicidal ideation Results Laboratory Results: 07/02/19 09:08 07/02/19 09:08 Impressions: Wrist X-Ray 06/28/19 06:38 IMPRESSION: 1. Minimally displaced fracture of the ulnar styloid process. 2. Widening of the scapholunate joint space which may represent age indeterminate ligamentous injury. 3. Osteoarthritis particularly involving the 1st carpal metacarpal joint. 4. Punctate radiopaque foreign body projecting along the dorsal aspect of the distal radial metaphysis. Chest X-Ray 06/28/19 07:19 IMPRESSION: NO ACUTE RADIOGRAPHIC FINDING IN THE CHEST. Fluoroscopy 06/29/19 00:00 IMPRESSION: IMAGE(S) OBTAINED DURING PROCEDURE. Hip X-Ray 06/29/19 00:00 IMPRESSION: INTERVAL SURGICAL FIXATION OF THE LEFT HIP FRACTURE. SEVERE DEGENERATIVE CHANGES IN THE LEFT HIP JOINT. Assessment and Plan - Diagnosis (1) Nondisplaced fracture of styloid process of left ulna Is this a current diagnosis for this admission?: Yes (2) COPD (chronic obstructive pulmonary disease) Is this a current diagnosis for this admission?: Yes (3) Tobacco abuse Is this a current diagnosis for this admission?: Yes (4) Alcohol abuse Is this a current diagnosis for this admission?: Yes (5) Cirrhosis of liver Is this a current diagnosis for this admission?: Yes (6) Displaced intertrochanteric fracture of left femur, initial encounter for closed fracture Is this a current diagnosis for this admission?: Yes (7) Thrombocytopenia concurrent with and due to alcoholism Is this a current diagnosis for this admission?: Yes - Plan Summary Summary: Patient will be admitted to the medicine service for medical management. Orthopedics will attend to the left ulnar fracture as well as the left hip fracture. Possibly surgery today. Patient will be watched closely for evidence of DTs however will not be treated prophylactically. Patient's cirrhosis will be monitored closely. Patient tells me he has never seen a feather renovator. April 2015 platelets were 50,000, October 2018 platelets were 62,000, and today platelets are 95,000 April 2015 INR was 2.55 today INR is 1.33 Liver functions have also been slowly increasing since April 2015 Chest x-ray today shows no acute cardiopulmonary disease EKG when compared to previous EKG shows no changes no acute findings. 06/29/2019 Patient seen briefly this morning prior to surgery left hip fracture. Its have gone down to 86,000. I have ordered 1 unit of platelets. I feel like this will be beneficial during patient's recovery from surgery. It is not absolutely necessary for surgery to proceed, however due to his history I think it is better to be ahead than to get behind Patient's ammonia level is also slightly elevated higher than admission. Liver function slightly improved 06/30/2019 Vital signs are stable temperature 98.9, pulse is 86, blood pressure 140/67, oxygen saturation is 94% on room air Patient's hemoglobin is stable 10.8, platelets are at 94,000 following surgery and 1 unit of platelets Patient's INR is 1.3 and his liver functions are better I have started him on Eliquis 2.5 mg every 12 hours. I held this approximately 18 hours following spinal anesthesia I have also DC'd patient's IV pain medication and switch him to p.o. Ultram Patient is going to get up today with physical therapy. Will discharge patient when released by orthopedics 07/01/2019 Patient appears medically stable Did not recheck labs today but will do so tomorrow Vital signs are stable today Per orthopedics recommendation have DC'd Yessenia and will start patient on 325 aspirin Have spaced Ultram back to 1 every 6 hours, only to help him with his ambulation and physical therapy. Will not DC on any narcotics or prescription pain meds. Physical therapy states they recommend snf/ rehab at time of d ischarge. Patient did ambulate 33 feet today. I put an order in for discharge planning to start the process. No signs of DVT at this time 07/02/2019 I observed patient ambulating with walker and the assistance of physical therapy. Patient ambulated about 75 feet. PTs recommendation was to continue skilled PT in acute setting after discharge. Discharge planning is working with the patient concerning patient's wishes as well as logistics. If patient goes home he will need snf assistance as well as physical therapy. Temperature 98.3 pulse 62 blood pressure 103/58 O2 sat 97% on room air Hemoglobin on admission 14.1 today 10.6 and appears to have stabilized Platelets on admission 95,000 yesterday 94,000, today platelets are up to 120,000 Plan to discharge patient from the hospitall tomorrow. Dressing over the left hip should not be removed until patient is seen in the o ffice in 7 to 10 days, Approximately July 08 07/03/2019 Vital signs remained stable Potassium is drifted down slightly to 3.3 will replace, with 20 mEq p.o. every 12 hours calcium is stable 7.7 Other electrolytes are normal CBC remained stable white count is normal 4.3 and hemoglobin is stable 10.6 p latelets stabilized 120,000 I have DC'd the Ultram will change to acetaminophen exclusively I have added BuSpar 10 mg every 12 hours for his anxiety Patient is now requesting to go to snf facility Please see note above for orthopedic follow-up - Time Time Spent with patient: 25-34 minutes
[2019-07-03] MEDS: BUSPIRONE HCL 10 MG TABLET PO SCH ×2 (14:19→21:39)
[2019-07-03] MEDS: TEMAZEPAM 15 MG CAPSULE PO PRN (21:39)
[2019-07-04] MEDS: FUROSEMIDE 20 MG TABLET PO SCH (07:38)
[2019-07-04 09:07] LABS: ABSOLUTE BASOPHILS # (AUTO) 0.1 10^3/uL (0.0-0.2); ABSOLUTE EOSINOPHILS # (AUTO) 0.2 10^3/uL (0.0-0.6); ABSOLUTE LYMPHOCYTES (AUTO) 0.9 10^3/uL (0.5-4.7); ABSOLUTE MONOCYTES (AUTO) 0.7 10^3/uL (0.1-1.4); ABSOLUTE NEUT (AUTO) 1.9 10^3/uL (1.7-8.2); BASOPHILS % (AUTO) 1.4 % (0-2); EOSINOPHILS % (AUTO) 4.8 % (0-6); HEMATOCRIT 30.6 % (37.9-51.0); LYMPHOCYTES % (AUTO) 23.9 % (13-45); MEAN CORPUSCULAR HEMOGLOBIN 37.1 pg (27.0-33.4); MEAN CORPUSCULAR HGB CONC 35.9 g/dL (32.0-36.0); MEAN CORPUSCULAR VOLUME 103 fl (80-97); MONOCYTES % (AUTO) 18.3 % (3-13); PLATELET COUNT 111 10^3/uL (150-450); RED BLOOD COUNT 2.96 10^6/uL (4.35-5.55); RED CELL DISTRIBUTION WIDTH 14.3 % (11.5-14.0); SEGMENTED NEUTROPHILS % (AUTO) 51.6 % (42-78); TOTAL CELLS COUNTED % (AUTO) 100 %; WHITE BLOOD COUNT 3.6 10^3/uL (4.0-10.5)
[2019-07-04] MEDS: BUSPIRONE HCL 10 MG TABLET PO SCH ×2 (09:09→22:45)
[2019-07-04] MEDS: ASPIRIN 325 MG TABLET PO SCH (09:09)
[2019-07-04] MEDS: FOLIC ACID 1 MG TABLET PO SCH (09:09)
[2019-07-04] MEDS: FAMOTIDINE 20 MG TABLET PO SCH ×2 (09:09→22:45)
[2019-07-04] MEDS: THIAMINE HCL 100 MG TABLET PO SCH (09:09)
[2019-07-04 09:34] LABS: ALBUMIN 2.2 g/dL (3.5-5.0); ALKALINE PHOSPHATASE 59 U/L (38-126); ANION GAP 5 (5-19); ASPARTATE AMINO TRANSFERASE 62 U/L (17-59); BILIRUBIN,DIRECT 1.3 mg/dL (0.0-0.4); BILIRUBIN,TOTAL 3.3 mg/dL (0.2-1.3); BLOOD UREA NITROGEN 11 mg/dL (7-20); CALCIUM 7.8 mg/dL (8.4-10.2); CARBON DIOXIDE 25 mmol/L (22-30); CHLORIDE 103 mmol/L (98-107); GLUCOSE 153 mg/dL (75-110); POTASSIUM 3.5 mmol/L (3.6-5.0); TOTAL PROTEIN 5.4 g/dL (6.3-8.2)
[2019-07-04] MEDS: TRAMADOL HCL 50 MG TABLET PO PRN (10:26)
--- NOTE | 2019-07-04 10:54 | PDOC PROGRESS REPORT ---
Subjective Progress Note for:: 07/04/19 Subjective:: 63 year old male who states that last night around 1230 tripped and fell. Patient states he had been drinking beer last night. Came into the emergency room this morning complaining of left hip pain and left wrist pain. Patient states he waited because he thought it might get better. Evidently patient has had several falls in the past and has had several x-rays of his left hip in the past in November 2018 he had an x-ray of the left hip in January 2019 x-ray of the left hip. These x-rays were for left hip pain and both showed degenerative changes only. This morning he came in to the emergency room and x-rays revealed a intertrochanteric fracture of the left hip and a small nondisplaced fracture of the left ulnar styloid. Patient has a splint applied to the left forearm, and is scheduled for surgery for pinning of the left hip later this afternoon. Patient's past medical history is significant for alcohol abuse. Patient states he drinks about a sixpack of beer every 3 to 4 days. Patient states he has cirrhosis of the liver secondary to his alcoholism. Patient is on Lasix folic acid and thiamine as a result of his liver disease and alcohol abuse. Patient tells me he has no history of hypertension nor any history of diabetes. Patient also tells me he is never had a stroke or heart attack. Patient tells me that he has a history of COPD but he very rarely uses his inhaler. Patient also tells me he is a daily cigarette smoker Patient states he is single and lives alone but has friends that will be able to help him rehab. Patient's next of kin is a brother who lives in [place], [place]. 07/04/2019-patient admitted with left intertrochanteric fracture status post left hip sliding hip screw placement. Therapy working with the patient patient waiting for placement. No acute events in the last 24 hours and afebrile. Reason For Visit: ALCOHOL ABUSE,CIRRHOSIS OF THE LIVER,COPD,FALL, Physical Exam Vital Signs: Temp Pulse Resp BP Pulse Ox 98.6 F 65 18 98/51 L 94 07/03/19 23:46 07/03/19 23:46 07/03/19 23:46 07/03/19 23:46 07/03/19 23:46 Intake & Output 07/03/19 07/04/1907/04/20 06:59 06:59 06:59 Intake Total 1772 358 Output Total 1150 1400 Balance 622 -1042 Weight 77.2 kg 77.2 kg General appearance: PRESENT: no acute distress, well-developed, well-nourished Head exam: PRESENT: atraumatic Eye exam: PRESENT: PERRLA Mouth exam: PRESENT: moist, tongue midline Teeth exam: PRESENT: poor dentation Neck exam: ABSENT: carotid bruit, JVD, lymphadenopathy, thyromegaly Respiratory exam: PRESENT: decreased breath sounds Cardiovascular exam: PRESENT: RRR. ABSENT: diastolic murmur, rubs, systolic murmur GI/Abdominal exam: PRESENT: normal bowel sounds, soft. ABSENT: distended, guarding, mass, organolmegaly, rebound, tenderness Rectal exam: PRESENT: deferred Extremities exam: PRESENT: full ROM. ABSENT: calf tenderness, clubbing, pedal edema Neurological exam: PRESENT: alert, awake, oriented to person, oriented to place, oriented to time, oriented to situation, CN II-XII grossly intact. ABSENT: motor sensory deficit Psychiatric exam: PRESENT: appropriate affect, normal mood. ABSENT: homicidal ideation, suicidal ideation Results Laboratory Results: 07/04/19 08:58 07/04/19 08:58 07/04/19 07/04/19 08:58 08:58 WBC 3.6 L RBC 2.96 L Hgb 11.0 L Hct 30.6 L MCV 103 H MCH 37.1 H MCHC 35.9 RDW 14.3 H Plt Count 111 L Seg Neutrophils % 51.6 Sodium 132.8 L Potassium 3.5 L Chloride 103 Carbon Dioxide 25 Anion Gap 5 BUN 11 Creatinine 0.58 Est GFR ( Amer) > 60 Glucose 153 H Calcium 7.8 L Magnesium 1.8 Total Bilirubin 3.3 H AST 62 H Alkaline Phosphatase 59 Total Protein 5.4 L Albumin 2.2 L Impressions: Wrist X-Ray 06/28/19 06:38 IMPRESSION: 1. Minimally displaced fracture of the ulnar styloid process. 2. Widening of the scapholunate joint space which may represent age indeterminate ligamentous injury. 3. Osteoarthritis particularly involving the 1st carpal metacarpal joint. 4. Punctate radiopaque foreign body projecting along the dorsal aspect of the distal radial metaphysis. Chest X-Ray 06/28/19 07:19 IMPRESSION: NO ACUTE RADIOGRAPHIC FINDING IN THE CHEST. Fluoroscopy 06/29/19 00:00 IMPRESSION: IMAGE(S) OBTAINED DURING PROCEDURE. Hip X-Ray 06/29/19 00:00 IMPRESSION: INTERVAL SURGICAL FIXATION OF THE LEFT HIP FRACTURE. SEVERE DEG ENERATIVE CHANGES IN THE LEFT HIP JOINT. Assessment and Plan - Diagnosis (1) Displaced intertrochanteric fracture of left femur, initial encounter for closed fracture Is this a current diagnosis for this admission?: Yes Plan: 07/04/2019-patient admitted with a left hip fracture status post surgery on 06/29/2019. Physical therapy is working with the patient. Plan is to discharge him to rehab. Patient is on aspirin at this time. Still complaining of pain in the left hip with activity receiving IV pain medications on PRN basis. (2) Nondisplaced fracture of styloid process of left ulna Is this a current diagnosis for this admission?: Yes Plan: 07/04/2019-orthopedic consult was done Dr. Alonzo is going to see the patient in the office for the management of nondisplaced fracture of styloid process of left ulna. (3) Thrombocytopenia concurrent with and due to alcoholism Is this a current diagnosis for this admission?: No Plan: 07/04/2019-platelet count today is 110,000. Low platelet count most likely secondary to hepatic injury secondary alcohol abuse. (4) COPD (chronic obstructive pulmonary disease) Is this a current diagnosis for this admission?: No Plan: 07/04/2019-patient has history of COPD pulse ox is 94% on 2 L. Not in respiratory distress. (5) Tobacco abuse Is this a current diagnosis for this admission?: No Plan: Patient is a daily day smoker smoking counseling was provided for more than 15 minutes , patient advised to quit smoking. (6) Cirrhosis of liver Is this a current diagnosis for this admission?: Yes - Plan Summary Summary: Patient will be admitted to the medicine service for medical management. Orthopedics will attend to the left ulnar fracture as well as the left hip fracture. Possibly surgery today. Patient will be watched closely for evidence of DTs however will not be treated prophylactically. Patient's cirrhosis will be monitored closely. Patient tells me he has never seen a critical care specialist. April 2015 platelets were 50,000, October 2018 platelets were 62,000, and today platelets are 95,000 April 2015 INR was 2.55 today INR is 1.33 Liver functions have also been slowly increasing since April 2015 Chest x-ray today shows no acute cardiopulmonary disease EKG when compared to previous EKG shows no changes no acute findings. 06/29/2019 Patient seen briefly this morning prior to surgery left hip fracture. Its have gone down to 86,000. I have ordered 1 unit of platelets. I feel like this will be beneficial during patient's recovery from surgery. It is not absolutely necessary for surgery to proceed, however due to his history I think it is better to be ahead than to get behind Patient's ammonia level is also slightly elevated higher than admission. Liver function slightly improved 06/30/2019 Vital signs are stable temperature 98.9, pulse is 86, blood pressure 140/67, oxygen saturation is 94% on room air Patient's hemoglobin is stable 10.8, platelets are at 94,000 following surgery and 1 unit of platelets Patient's INR is 1.3 and his liver functions are better I have started him on Eliquis 2.5 mg every 12 hours. I held this approximately 18 hours following spinal anesthesia I have also DC'd patient's IV pain medication and switch him to p.o. Ultram Patient is going to get up today with physical therapy. Will discharge patient when released by orthopedics 07/01/2019 Patient appears medically stable Did not recheck labs today but will do so tomorrow Vital signs are stable today Per orthopedics recommendation have DC'd Eliquis and will start patient on 325 aspirin Have spaced Ultram back to 1 every 6 hours, only to help him with his ambulation and physical therapy. Will not DC on any narcotics or prescription pain meds. Physical therapy states they recommend snf/ rehab at time of discharge. Patient did ambulate 33 feet today. I put an order in for discharge planning to start the process. No signs of DVT at this time 07/02/2019 I observed patient ambulating with walker and the assistance of physical therapy. Patient ambulated about 75 feet. PTs recommendation was to continue skilled PT in acute setting after discharge. Discharge planning is working with the patient concerning patient's wishes as well as logistics. If patient goes home he will need snf assistance as well as physical therapy. Temperature 98.3 pulse 62 blood pressure 103/58 O2 sat 97% on room air Hemoglobin on admission 14.1 today 10.6 and appears to have stabilized Platelets on admission 95,000 yesterday 94,000, today platelets are up to 120,000 Plan to discharge patient from the hospitall tomorrow. Dressing over the left hip should not be removed until patient is seen in the office in 7 to 10 days, Approximately July 08 07/03/2019 Vital signs remained stable Potassium is drifted down slightly to 3.3 will replace, with 20 mEq p.o. every 12 hours calcium is stable 7.7 Other electrolytes are normal CBC remained stable white count is normal 4.3 and hemoglobin is stable 10.6 platelets stabilized 120,000 I have DC'd the Ultram will change to acetaminophen exclusively I have added BuSpar 10 mg every 12 hours for his anxiety Patient is now requesting to go to snf facility Please see note above for orthopedic follow-up
--- NOTE | 2019-07-04 16:15 | PDOC PROGRESS REPORT ---
Subjective Progress Note for:: 07/04/19 Subjective:: Patient reports continued improvement in pain, ability to ambulate, and overall improvement since the time of surgery. However the nursing staff explains that he has been refusing to participate with physical therapy. Denies any interval symptoms. Reason For Visit: ALCOHOL ABUSE,CIRRHOSIS OF THE LIVER,COPD,FALL, Physical Exam Vital Signs: Temp Pulse Resp BP Pulse Ox 98.0 F 67 16 106/55 L 98 07/04/19 11:15 07/04/19 11:15 07/04/19 11:15 07/04/19 11:15 07/04/19 11:15 Intake & Output 07/03/19 07/04/19 07/05/19 06:59 06:59 06:59 Intake Total 1772 358 120 Output Total 1150 1400 Balance 622 -1042 120 Weight 77.2 kg 77.2 kg Physical Exam: General appearance: PRESENT: no acute distress, cooperative, well-nourished Head exam: PRESENT: atraumatic, normocephalic Eye exam: PRESENT: EOMI Ear exam: PRESENT: normal external ear exam Mouth exam: PRESENT: neck supple Neck exam: ABSENT: tracheal deviation Respiratory exam: PRESENT: symmetrical, unlabored. ABSENT: accessory muscle use, wheezes Pulses: PRESENT: normal radial pulses, normal dorsalis pedis pulse Vascular exam: PRESENT: normal capillary refill GI/Abdominal exam: ABSENT: distended, firm Extremities exam: PRESENT: full ROM of bilateral shoulders, elbows wrists, knees, hips and ankles without pain Musculoskeletal exam: PRESENT: full ROM, normal inspection of all 4 extremities aside from that noted below. Neurological exam: PRESENT: alert, awake, oriented to person, oriented to place, oriented to time Psychiatric exam: PRESENT: appropriate affect. ABSENT: agitated Focused psych exam: ABSENT: catatonic Skin exam: PRESENT: intact. ABSENT: dry All as above aside from that noted in the HPI and the following: Left lower extremity -Pulses 2+ distally -Compartments soft -Wound clean dry and intact no drainage, appropriate appearance for postop day 1 -Sensation grossly intact to L3-4-5 S1 -Motor grossly intact to EHL TA gastroc and quad - Able to perform quad extension and elevate heel off of bed. Results Laboratory Results: 07/04/19 08:58 07/04/19 08:58 07/04/19 07/04/19 08:58 08:58 WBC 3.6 L RBC 2.96 L Hgb 11.0 L Hct 30.6 L MCV 103 H MCH 37.1 H MCHC 35.9 RDW 14.3 H Plt Count 111 L Seg Neutrophils % 51.6 Sodium 132.8 L Potassium 3.5 L Chloride 103 Carbon Dioxide 25 Anion Gap 5 BUN 11 Creatinine 0.58 Est GFR ( Amer) > 60 Glucose 153 H Calcium 7.8 L Magnesium 1.8 Total Bilirubin 3.3 H AST 62 H Alkaline Phosphatase 59 Total Protein 5.4 L Albumin 2.2 L Impressions: Wrist X-Ray 06/28/19 06:38 IMPRESSION: 1. Minimally displaced fracture of the ulnar styloid process. 2. Widening of the scapholunate joint space which may represent age indeterminate ligamentous injury. 3. Osteoarthritis particularly involving the 1st carpal metacarpal joint. 4. Punctate radiopaque foreign body projecting along the dorsal aspect of the distal radial metaphysis. Chest X-Ray 06/28/19 07:19 IMPRESSION: NO ACUTE RADIOGRAPHIC FINDING IN THE CHEST. Fluoroscopy 06/29/19 00:00 IMPRESSION: IMAGE(S) OBTAINED DURING PROCEDURE. Hip X-Ray 06/29/19 00:00 IMPRESSION: INTERVAL SURGICAL FIXATION OF THE LEFT HIP FRACTURE. SEVERE DEGENERATIVE CHANGES IN THE LEFT HIP JOINT. Assessment & Plan - Diagnosis (1) Displaced intertrochanteric fracture of left femur, initial encounter for closed fracture Is this a current diagnosis for this admission?: Yes Plan: -Weightbearing as tolerated, no precautions, encourage out of bed [facility] for ADL training - PT/OT -aspirin 325 daily for DVT prophylaxis for 6 weeks -multimodal pain management to avoid excessive narcotics, including gabapentin, tramadol, Toradol, acetaminophen. -Dressing change as needed -May shower with the dressing intact, if it starts to come off she should not get the incision wet. -I would like to follow the patient my office within the next [address] [place] [address]. in [place] office #: [phone] (2) Nondisplaced fracture of styloid process of left ulna Is this a current diagnosis for this admission?: Yes - Time Time Spent with patient: Less than 15 minutes
[2019-07-05] MEDS: BUSPIRONE HCL 10 MG TABLET PO SCH (09:29)
[2019-07-05] MEDS: FUROSEMIDE 20 MG TABLET PO SCH (09:29)
[2019-07-05] MEDS: FAMOTIDINE 20 MG TABLET PO SCH (09:29)
[2019-07-05] MEDS: THIAMINE HCL 100 MG TABLET PO SCH (09:30)
[2019-07-05] MEDS: FOLIC ACID 1 MG TABLET PO SCH (09:30)
[2019-07-05] MEDS: ASPIRIN 325 MG TABLET PO SCH (09:30)
--- NOTE | 2019-07-05 10:27 | PDOC DISCHARGE SUMMARY ---
Impression - Admit/DC Date/PCP Admission Date/Primary Care Provider: 06/28/19 10:[facility] Discharge Date: 07/05/19 - Discharge Diagnosis (1) Displaced intertrochanteric fracture of left femur, initial encounter for closed fracture Is this a current diagnosis for this admission?: Yes (2) Nondisplaced fracture of styloid process of left ulna Is this a current diagnosis for this admission?: Yes (3) Thrombocytopenia concurrent with and due to alcoholism Is this a current diagnosis for this admission?: No (4) COPD (chronic obstructive pulmonary disease) Is this a current diagnosis for this admission?: No (5) Tobacco abuse Is this a current diagnosis for this admission?: No (6) Cirrhosis of liver Is this a current diagnosis for this admission?: Yes - Assessment Summary: Patient will be admitted to the medicine service for medical management. Orthopedics will attend to the left ulnar fracture as well as the left hip fracture. Possibly surgery today. Patient will be watched closely for evidence of DTs however will not be treated prophylactically. Patient's cirrhosis will be monitored closely. 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 April 2015 platelets were 50,000, October 2018 platelets were 62,000, and today platelets are 95,000 April 2015 INR was 2.55 today INR is 1.33 Liver functions have also been slowly increasing since April 2015 Chest x-ray today shows no acute cardiopulmonary disease EKG when compared to previous EKG shows no changes no acute findings. 06/29/2019 Patient seen briefly this morning prior to surgery left hip fracture. Its have gone down to 86,000. I have ordered 1 unit of platelets. I feel like this will be beneficial during patient's recovery from surgery. It is not absolutely necessary for surgery to proceed, however due to his history I think it is better to be ahead than to get behind Patient's ammonia level is also slightly elevated higher than admission. Liver function slightly improved 06/30/2019 Vital signs are stable temperature 98.9, pulse is 86, blood pressure 140/67, oxygen saturation is 94% on room air Patient's hemoglobin is stable 10.8, platelets are at 94,000 following surgery and 1 unit of platelets Patient's INR is 1.3 and his liver functions are better I have started him on Eliquis 2.5 mg every 12 hours. I held this approximately 18 hours following spinal anesthesia I have also DC'd patient's IV pain medication and switch him to p.o. Ultram Patient is going to get up today with physical therapy. Will discharge patient when released by orthopedics 07/01/2019 Patient appears medically stable Did not recheck labs today but will do so tomorrow Vital signs are stable today Per orthopedics recommendation have DC'd Eliquis and will start patient on 325 aspirin Have spaced Ultram back to 1 every 6 hours, only to help him with his ambulation and physical therapy. Will not DC on any narcotics or prescription pain meds. Physical therapy states they recommend long term/ rehab at time of discharge. Patient did ambulate 33 feet today. I put an order in for discharge planning to start the process. No signs of DVT at this time 07/02/2019 I observed patient ambulating with walker and the assistance of physical therapy. Patient ambulated about 75 feet. PTs recommendation was to continue skilled PT in acute setting after discharge. Discharge planning is working with the patient concerning patient's wishes as well as logistics. If patient goes home he will need long term assistance as well as physical therapy. Temperature 98.3 pulse 62 blood pressure 103/58 O2 sat 97% on room air Hemoglobin on admission 14.1 today 10.6 and appears to have stabilized Platelets on admission 95,000 yesterday 94,000, today platelets are up to 12 0,000 Plan to discharge patient from the hospitall tomorrow. Dressing over the left hip should not be removed until patient is seen in the office in 7 to 10 days, Approximately July 08 07/03/2019 Vital signs remained stable Potassium is drifted down slightly to 3.3 will replace, with 20 mEq p.o. every 12 hours calcium is stable 7.7 Other electrolytes are normal CBC remained stable white count is normal 4.3 and hemoglobin is stable 10.6 platelets stabilized 120,000 I have DC'd the Ultram will change to acetaminophen exclusively I have added BuSpar 10 mg every 12 hours for his anxiety Patient is now requesting to go to long term facility Please see note above for orthopedic follow-up (1) Displaced intertrochanteric fracture of left femur, initial encounter for closed fracture Is this a current diagnosis for this admission?: Yes Plan: 07/04/2019-patient admitted with a left hip fracture status post surgery on 06/28. Physical therapy is working with the patient. Plan is to discharge him to rehab. Patient is on aspirin at this time. Still complaining of pain in the left hip with activity receiving IV pain medications on PRN basis. 07/05/2019-patient is doing well. Dr. Tariq evaluated the patient yesterday is going to see him in the office in 2 weeks time. Patient is going home with home health and physical therapy. (2) Nondisplaced fracture of styloid process of left ulna Is this a current diagnosis for this admission?: Yes Plan: 07/04/2019-orthopedic consult was done Dr. Tariq is going to see the patient in the office for the management of nondisplaced fracture of styloid process of left ulna. 07/05/2019-patient is going to follow-up with Dr. Tariq as an outpatient in 2 weeks. (3) Thrombocytopenia concurrent with and due to alcoholism Is this a current diagnosis for this admission?: No Plan: 07/04/2019-platelet count today is 110,000. Low platelet count most likely secondary to hepatic injury secondary alcohol abuse. (4) COPD (chronic obstructive pulmonary disease) Is this a current diagnosis for this admission?: No Plan: 07/04/2019-patient has history of COPD pulse ox is 94% on 2 L. Not in respiratory distress. (5) Tobacco abuse Is this a current diagnosis for this admission?: No Plan: Patient is a daily day smoker smoking counseling was provided for more than 15 minutes , patient advised to quit smoking. (6) Cirrhosis of liver Is this a current diagnosis for this admission?: Yes - Additional Information Resuscitation Status: Full Code Discharge Diet: Cardiac Discharge Activity: Slowly Increase Activity Referrals: ZAIDA TARIQ JR, DO [ACTIVE PROVISIONAL STAFF] - 07/14/19 10:00 am [facility] [Primary Care Provider] - Follow up as needed (THE AUTOMATATED SCHEDULING SYSTEM IS UNAVAILABLE DUE TO AN UPGRADE TO THE SYSTEM.) Home Medications: Folic Acid 1 mg PO DAILY #30 tablet 05/29/15 Furosemide [Lasix 20 mg Tablet] 20 mg PO QAM #30 tablet 05/29/15 Thiamine HCl [Thiamine 100 mg Tablet] 100 mg PO DAILY #30 tablet 05/29/15 Albuterol Sulfate [Proair HFA Inhalation Aerosol 8.5 gm MDI] 2 puff IH Q4HP PRN 06/28/19 Aspirin [Aspirin 325 mg Tablet] 325 mg PO DAILY tablet 07/05/19 Buspirone HCl [Buspar 10 mg Tablet] 10 mg PO Q12 tablet 07/05/19 History of Present Illiness History of Present Illness: KATH HART is a 63 year old male 63 year old male who states that last night around 1230 tripped and fell. Patient states he had been drinking beer last night. Came into the emergency room this morning complaining of left hip pain and left wrist pain. Patient states he waited because he thought it might get better. Evidently patient has had several falls in the past and has had several x-rays of his left hip in the past in November 2018 he had an x-ray of the left hip in January 2019 x-ray of the left hip. These x-rays were for left hip pain and both showed degenerative changes only. This morning he came in to the emergency room and x-rays revealed a intertrochanteric fracture of the left hip and a small nondisplaced fracture of the left ulnar styloid. Patient has a splint applied to the left forearm, and is scheduled for surgery for pinning of the left hip later this afternoon. Patient's past medical history is significant for alcohol abuse. Patient states he drinks about a sixpack of beer every 3 to 4 days. Patient states he has cirrhosis of the liver secondary to his alcoholism. Patient is on Lasix folic acid and thiamine as a result of his liver disease and alcohol abuse. Patient tells me he has no history of hypertension nor any history of diabetes. Patient also tells me he is never had a stroke or heart attack. Patient tells me that he has a history of COPD but he very rarely uses his inhaler. Patient also tells me he is a daily cigarette smoker Patient states he is single and lives alone but has friends that will be able to help him rehab. Patient's next of kin is a brother who lives in [place], [place]. Hospital Course Hospital Course: 63 year old male who states that last night around 1230 tripped and fell. Patient states he had been drinking beer last night. Came into the emergency room this morning complaining of left hip pain and left wrist pain. Patient states he waited because he thought it might get better. Evidently patient has had several falls in the past and has had several x-rays of his left hip in the past in November 2018 he had an x-ray of the left hip in January 2019 x-ray of the left hip. These x-rays were for left hip pain and both showed degenerative changes only. This morning he came in to the emergency room and x-rays revealed a intertrochanteric fracture of the left hip and a small nondisplaced fracture of the left ulnar styloid. Patient has a splint applied to the left forearm, and is scheduled for surgery for pinning of the left hip later this afternoon. Patient's past medical history is significant for alcohol abuse. Patient states he drinks about a sixpack of beer every 3 to 4 days. Patient states he has cirrhosis of the liver secondary to his alcoholism. Patient is on Lasix folic acid and thiamine as a result of his liver disease and alcohol abuse. Patient tells me he has no history of hypertension nor any history of diabetes. Patient also tells me he is never had a stroke or heart attack. Patient tells me that he has a history of COPD but he very rarely uses his inhaler. Patient also tells me he is a daily cigarette smoker Patient states he is single and lives alone but has friends that will be able to help him rehab. Patient's next of kin is a brother who lives in [place], [place]. 07/04/2019-patient admitted with left intertrochanteric fracture status post left hip sliding hip screw placement. Therapy working with the patient patient waiting for placement. No acute events in the last 24 hours and afebrile. 07/05/2019-patient is working with the physical therapy. He is refusing to go to [place] [facility] [place] facility. The alternative is patient is prefers to go home with home health and home physical therapy. Physical Exam Vital Signs: Temp Pulse Resp BP Pulse Ox 99.0 F 72 18 113/61 95 07/04/19 23:59 07/04/19 23:59 07/04/19 23:59 07/04/19 23:59 07/04/19 23:59 Intake & Output 07/04/19 07/05/19 07/06/19 06:59 06:59 06:59 Intake Total 358 1480 Output Total 1400 600 Balance -1042 880 Weight 77.2 kg 77.6 kg General appearance: PRESENT: no acute distress, well-developed Head exam: PRESENT: atraumatic Eye exam: PRESENT: PERRLA Mouth exam: PRESENT: moist, tongue midline Teeth exam: PRESENT: poor dentation Neck exam: ABSENT: carotid bruit, JVD, lymphadenopathy, thyromegaly Respiratory exam: PRESENT: decreased breath sounds Cardiovascular exam: PRESENT: RRR. ABSENT: diastolic murmur, rubs, systolic murmur Pulses: PRESENT: normal dorsalis pedis pul GI/Abdominal exam: PRESENT: normal bowel sounds, soft. ABSENT: distended, guarding, mass, organolmegaly, rebound, tenderness Rectal exam: PRESENT: deferred Extremities exam: PRESENT: full ROM. ABSENT: calf tenderness, clubbing, pedal edema Neurological exam: PRESENT: alert, awake, oriented to person, oriented to place, oriented to time, oriented to situation, CN II-XII grossly intact. ABSENT: motor sensory deficit Psychiatric exam: PRESENT: appropriate affect, normal mood. ABSENT: homicidal ideation, suicidal ideation Skin exam: PRESENT: dry, intact, warm. ABSENT: cyanosis, rash Results Laboratory Results: WBC 3.6 10^3/uL (4.0-10.5) L 07/04/19 08:58 RBC 2.96 10^6/uL (4.35-5.55) L 07/04/19 08:58 Hgb 11.0 g/dL (13.5-17.0) L 07/04/19 08:58 Hct 30.6 % (37.9-51.0) L 07/04/19 08:58 MCV 103 fl (80-97) H 07/04/19 08:58 MCH 37.1 pg (27.0-33.4) H 07/04/19 08:58 MCHC 35.9 g/dL (32.0-36.0) 07/04/19 08:58 RDW 14.3 % (11.5-14.0) H 07/04/19 08:58 Plt Count 111 10^3/uL (150-450) L 07/04/19 08:58 Lymph % (Auto) 23.9 % (13-45) 07/04/19 08:58 [place] % (Auto) 18.3 % (3-13) H 07/04/19 08:58 Eos % (Auto) 4.8 % (0-6) 07/04/19 08:58 Baso % (Auto) 1.4 % (0-2) 07/04/19 08:58 Absolute Neuts (auto) 1.9 10^3/uL (1.7-8.2) 07/04/19 08:58 Absolute Lymphs (auto) 0.9 10^3/uL (0.5-4.7) 07/04/19 08:58 Absolute Monos (auto) 0.7 10^3/uL (0.1-1.4) 07/04/19 08:58 Absolute Eos (auto) 0.2 10^3/uL (0.0-0.6) 07/04/19 08:58 Absolute Basos (auto) 0.1 10^3/uL (0.0-0.2) 07/04/19 08:58 Total Counted 100 06/30/19 04:25 Seg Neutrophils % 51.6 % (42-78) 07/04/19 08:58 Seg Neuts % (Manual) 67 % (42-78) 06/30/19 04:25 Band Neutrophils % 2 % (3-5) L 06/30/19 04:25 Lymphocytes % (Manual) 17 % (13-45) 06/30/19 04:25 Monocytes % (Manual) 14 % (3-13) H 06/30/19 04:25 Eosinophils % (Manual) 0 % (0-6) 06/30/19 04:25 Basophils % (Manual) 0 % (0-2) 06/30/19 04:25 Abs Neuts (Manual) 4.5 10^3/uL (1.7-8.2) 06/30/19 04:25 Abs Lymphs (Manual) 1.1 10^3/uL (0.5-4.7) 06/30/19 04:25 Abs Monocytes (Manual) 0.9 10^3/uL (0.1-1.4) 06/30/19 04:25 Absolute Eos (Manual) 0.0 10^3/uL (0.0-0.6) 06/30/19 04:25 Abs Basophils (Manual) 0.0 10^3/uL (0.0-0.2) 06/30/19 04:25 Platelet Comment DECREASED 06/30/19 04:25 Anisocytosis SLIGHT 06/30/19 04:25 Macrocytosis 1+ 06/30/19 04:25 PT 16.5 SEC (11.4-15.4) H 07/02/19 09:08 INR 1.32 07/02/19 09:08 APTT 40.1 SEC (23.5-35.8) H 06/29/19 04:53 Sodium 132.8 mmol/L (137-145) L 07/04/19 08:58 Potassium 3.5 mmol/L (3.6-5.0) L 07/04/19 08:58 Chloride 103 mmol/L (98-107) 07/04/19 08:58 Carbon Dioxide 25 mmol/L (22-30) 07/04/19 08:58 Anion Gap 5 (5-19) 07/04/19 08:58 BUN 11 mg/dL (7-20) 07/04/19 08:58 Creatinine 0.58 mg/dL (0.52-1.25) 07/04/19 08:58 Est GFR ( Amer) > 60 (>60) 07/04/19 08:58 Est GFR (MDRD) Non-Af > 60 (>60) 07/04/19 08:58 Glucose 153 mg/dL (75-110) H 07/04/19 08:58 Calcium 7.8 mg/dL (8.4-10.2) L 07/04/19 08:58 Magnesium 1.8 mg/dL (1.6-2.3) 07/04/19 08:58 Total Bilirubin 3.3 mg/dL (0.2-1.3) H 07/04/19 08:58 Direct Bilirubin 1.3 mg/dL (0.0-0.4) H 07/04/19 08:58 Neonat Total Bilirubin Not Reportable 07/04/19 08:58 Neonat Direct Bilirubin Not Reportable 07/04/19 08:58 Neonat Indirect Bili Not Reportable 07/04/19 08:58 AST 62 U/L (17-59) H 07/04/19 08:58 ALT 32 U/L (<50) 07/04/19 08:58 Alkaline Phosphatase 59 U/L (38-126) 07/04/19 08:58 Ammonia 42.7 umol/L (9-33) H 06/29/19 04:53 Total Protein 5.4 g/dL (6.3-8.2) L 07/04/19 08:58 Albumin 2.2 g/dL (3.5-5.0) L 07/04/19 08:58 Amylase 116 U/L (30-110) H 06/28/19 07:30 Lipase 259.2 U/L (23-300) 06/28/19 07:30 Urine Color YELLOW 06/28/19 22:27 Urine Appearance CLEAR 06/28/19 22:27 Urine pH 5.0 (5.0-9.0) 06/28/19 22:27 Ur Specific Anton 1.013 06/28/19 22:27 Urine Protein NEGATIVE mg/dL (NEGATIVE) 06/28/19 22:27 Urine Glucose (UA) NEGATIVE mg/dL (NEGATIVE) 06/28/19 22:27 Urine Ketones NEGATIVE mg/dL (NEGATIVE) 06/28/19 22:27 Urine Blood SMALL (NEGATIVE) H 06/28/19 22:27 Urine Nitrite (Reflex) NEGATIVE (NEGATIVE) 06/28/19 22:27 Urine Bilirubin NEGATIVE (NEGATIVE) 06/28/19 22:27 Urine Urobilinogen 2.0 mg/dL (<2.0) H 06/28/19 22:27 Leukocyte Esterase Rfl NEGATIVE (NEGATIVE) 06/28/19 22:27 Urine RBC (Auto) 1 /HPF 06/28/19 22:27 U Hyaline Cast (Auto) 22 /LPF 06/28/19 22:27 Urine WBC (Reflex) 2 /HPF 06/28/19 22:27 Squamous Epi Cells Auto 1 /HPF 06/28/19 22:27 Urine Mucus (Auto) OCC /LPF 06/28/19 22:27 Urine Ascorbic Acid NEGATIVE (NEGATIVE) 06/28/19 22:27 Blood Type A POSITIVE 06/28/19 11:03 Antibody Screen NEGATIVE 06/28/19 11:03 Impressions: Hip X-Ray 06/28/19 06:26 IMPRESSION: 1. Minimally displaced intertrochanteric fracture of the proximal left femur. 2. 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 Findings are similar when compared to the prior study. Wrist X-Ray 06/28/19 06:38 IMPRESSION: 1. Minimally displaced fracture of the ulnar styloid process. 2. Widening of the scapholunate joint space which may represent age indeterminate ligamentous injury. 3. Osteoarthritis particularly involving the 1st carpal metacarpal joint. 4. Punctate radiopaque foreign body projecting along the dorsal aspect of the distal radial metaphysis. Chest X-Ray 06/28/19 07:19 IMPRESSION: NO ACUTE RADIOGRAPHIC FINDING IN THE CHEST. Fluoroscopy 06/29/19 00:00 IMPRESSION: IMAGE(S) OBTAINED DURING PROCEDURE. Hip X-Ray 06/29/19 00:00 IMPRESSION: IMAGE(S) OBTAINED DURING PROCEDURE. Hip X-Ray 06/29/19 00:00 IMPRESSION: INTERVAL SURGICAL FIXATION OF THE LEFT HIP FRACTURE. SEVERE DEGENERATIVE CHANGES IN THE LEFT HIP JOINT. Plan Plan of Treatment: Patient is going home today with home health and home physical therapy. he he [facility]. Time Spent: Greater than 30 Minutes Stroke Is this a Stroke Patient?: No Acute Heart Failure - Is this a Heart Failure Patient?: No
[2019-07-05 12:10] VITALS: BP 102/67
== END 2019-07-05 14:50 | disposition home health service (06) | DRG 481 ==
LOC: ER 06:05 → EH 10:31 → 4N 17:51
PROVIDERS: ADMIT Hospitalist; ATTEND Internal Medicine
PROC: 30233R1 Transfusion of Nonautologous Platelets into Peripheral Vein, Percutaneous Approach (ICD-10-PCS; 2019-06-28)
PROC: 0SHB04Z Insertion of Internal Fixation Device into Left Hip Joint, Open Approach (ICD-10-PCS; principal; 2019-06-29 09:45)
DX: S72.142A Displaced intertrochanteric fracture of left femur, initial encounter for closed fracture (principal); S52.615A Nondisplaced fracture of left ulna styloid process, initial encounter for closed fracture; I10 Essential (primary) hypertension; J44.9 Chronic obstructive pulmonary disease, unspecified; K70.30 Alcoholic cirrhosis of liver without ascites; D69.59 Other secondary thrombocytopenia; F10.20 Alcohol dependence, uncomplicated; F12.90 Cannabis use, unspecified, uncomplicated; F17.210 Nicotine dependence, cigarettes, uncomplicated; W18.39XA Other fall on same level, initial encounter; Y93.89 Activity, other specified; Y92.018 Other place in single-family (private) house as the place of occurrence of the external cause; Z60.2 Problems related to living alone; Z72.89 Other problems related to lifestyle; Z79.51 Long term (current) use of inhaled steroids; Z79.899 Other long term (current) drug therapy
CPT/HCPCS: 01230; 36415; 36430; 71045; 80048; 80053; 81001; 82140; 82150; 83690; 83735; 85025; 85610; 85730; 86850; 86900; 86901; 87635; 93005; 93010; 96374; 99285; C1713; C1769; J0330; J0690; J1885; J2250; J2270; J2704; J3010; J3490; J7030; J7060; L3908; P9035; S0028